=== PATIENT | male | born 1960 | race Caucasian/White ===

== ENCOUNTER 2021-09-29 16:42 | Outpatient (CLI) | payer MEDICAID, SELFPAY ==
[2021-09-29 11:27] LABS: Cholesterol* 172 mg/dL (90-199); Triglycerides* 53 mg/dL (40-149)
[2021-09-29 11:28] LABS: HDL Cholesterol* 60 mg/dL (>=40); LDL Cholesterol Calculated 101 mg/dL (<100)
[2021-09-29 11:53] LABS: PSA Screen* 2.89 ng/mL (0.10-4.00)
== END 2021-09-29 16:43 | disposition home or self-care (01) ==
PROVIDERS: PCP Family Medicine; Visit Provider Family Medicine
DX: Z00.00 Encounter for general adult medical examination without abnormal findings (principal); Z12.5 Encounter for screening for malignant neoplasm of prostate; Z13.6 Encounter for screening for cardiovascular disorders
CPT/HCPCS: 80061; 84153

== ENCOUNTER 2021-10-07 13:03 | Outpatient (CLI) | payer MEDICAID, SELFPAY ==
[2021-10-07 18:05] LABS: Albumin* 4.2 g/dL (3.3-5.0); Chloride* 103 mmol/L (96-114)
[2021-10-07 18:06] LABS: Sodium* 138 mmol/L (135-149)
[2021-10-07 18:08] LABS: Alkaline Phosphatase* 88 U/L (40-150); Aspartate Amino Transferase* 27 U/L (12-35); Bilirubin Total* 0.4 mg/dL (0.1-1.5); Blood Urea Nitrogen* 21 mg/dL (7-30); Carbon Dioxide* 28 mmol/L (20-32); Creatinine* 0.9 mg/dL (0.5-1.5); Estimated Glomerular Filt Rate 97 ml/min; Total Protein* 6.5 g/dL (6.0-8.3)
[2021-10-07 18:09] LABS: Alanine Aminotransferase* 26 U/L (4-50); Glucose* 97 mg/dL (60-115)
== END 2021-10-07 13:04 | disposition home or self-care (01) ==
LOC: NFLDREF 13:04
PROVIDERS: PCP Family Medicine; Visit Provider Family Medicine
DX: Z00.00 Encounter for general adult medical examination without abnormal findings (principal); R53.83 Other fatigue
CPT/HCPCS: 80053

== ENCOUNTER 2022-02-15 07:45 | Outpatient (CLI) | payer MEDICAID, SELFPAY ==
--- NOTE | 2022-02-15 08:00 | CRLHL7_ITS ---
For Patients: As a result of the Cures Act, medical imaging exams and procedure reports are released immediately into your electronic medical record. You may view this report before your referring provider. If you have questions, please contact your health care provider. INDICATION: Lung cancer screening. History of smoking. High risk patient with greater than 38 pack-year smoking history. TECHNIQUE: Low-dose lung cancer screening non-contrast CT chest. Dose reduction techniques were used. COMPARISON: None. FINDINGS: NODULES: 4 millimeter nodular density left upper lobe, 3/63, possible branching vessel. Benign calcified nodule posterior segment left upper lobe. Other smaller calcified granulomas are present bilaterally. Peripheral nodule left upper lobe measuring 5 millimeters, 3/105. Small curvilinear nodule adjacent to the left major fissure left upper lobe measuring 4.7 millimeters, 3/82. Peripheral nodule within the right middle lobe measuring 3.5 millimeters, 3/107. Curvilinear nodular density adjacent to the pleura within the right lower lobe measuring 4 millimeters, 3/128. Additional right lower lobe nodule adjacent to the fissure measuring 3.3 millimeters, 3/134. LUNGS AND PLEURA: Emphysematous changes with COPD. No infiltrate or edema. No effusion or pneumothorax. MEDIASTINUM: No adenopathy. CORONARY ARTERY CALCIFICATION: Mild-moderate. LIMITED UPPER ABDOMEN: Status post cholecystectomy. Vascular calcifications. MUSCULOSKELETAL: Normal. IMPRESSION: Multiple bilateral pulmonary nodules measuring up to 5 millimeters. LUNG-RADS CATEGORY: 2: Benign. RADIOLOGIST RECOMMENDATION: Continue annual screening with low-dose CT chest in 12 months. Please note that all CT scans at this facility use dose modulation, iterative reconstruction, and/or weight-based dosing when appropriate to reduce radiation dose to as low as reasonably achievable. Dictated by Mio Barajas MD @ 02/15/2022 11:25:32 AM (Electronically Signed)
== END 2022-02-15 07:46 | disposition home or self-care (01) ==
LOC: CT 07:46
PROVIDERS: PCP Family Medicine; Visit Provider Family Medicine
DX: F17.200 Nicotine dependence, unspecified, uncomplicated (principal); R91.1 Solitary pulmonary nodule; Z12.2 Encounter for screening for malignant neoplasm of respiratory organs
CPT/HCPCS: 71271

== ENCOUNTER 2022-09-22 13:33 | Outpatient (CLI) | payer MEDICAID, SELFPAY | END 2022-09-22 13:34 | disposition home or self-care (01) | PROVIDERS: PCP Family Medicine; Visit Provider Nurse Practitioner Family | DX: D64.9 Anemia, unspecified (principal); R00.2 Palpitations; R53.1 Weakness; R06.09 Other forms of dyspnea; Z13.6 Encounter for screening for cardiovascular disorders | CPT/HCPCS: 80053; 80061; 83735; 84443; 85025 ==

== ENCOUNTER 2022-09-30 10:37 | Outpatient (CLI) | payer MEDICAID, SELFPAY | END 2022-09-30 10:38 | disposition home or self-care (01) | PROVIDERS: PCP Nurse Practitioner Family; Visit Provider Nurse Practitioner Family | DX: R53.1 Weakness (principal); R06.09 Other forms of dyspnea; R00.2 Palpitations; Z13.6 Encounter for screening for cardiovascular disorders; Z12.5 Encounter for screening for malignant neoplasm of prostate | CPT/HCPCS: 83540; 83550; 84153; 93225; 93226 ==

== ENCOUNTER 2022-10-12 08:02 | Outpatient (CLI) | payer MEDICAID, SELFPAY ==
--- NOTE | 2022-10-12 08:15 | CRLHL7_ITS ---
For Patients: As a result of the Century Cures Act, medical imaging exams and procedure reports are released immediately into your electronic medical record. You may view this report before your referring provider. If you have questions, please contact your health care provider. INDICATION: Dysphagia TECHNIQUE: Modified barium swallow. Fluoroscopic time 71 seconds. COMPARISON: None FINDINGS/IMPRESSION: Anatomical structures are normal. Swallowing mechanism appears within normal limits. No episodes of penetration or aspiration. No significant findings. Dictated by Mio Barajas MD @ 10/12/2022 8:50:13 AM (Electronically Signed)
--- NOTE | 2022-10-12 13:54 | SLP.EVAL ---
Ashley Please review, sign and return. Thank you KAITLYN Dobbs LOAN COUNSELOR Vicky Perry Start: 10/12/22 08:37 Freq: Status: Active Protocol: Document 10/12/22 08:37 HJS (Rec: 10/12/22 08:47 HJS [id number]) E-signed By Karma Kim CCC, LOAN COUNSELOR LOAN COUNSELOR System Review History & Reason For Referral Type of Speech Evaluation Modified Barium Swallow Evaluation Rehabilitation Order Evaluation Date of Order 09/30/22 Reason for Referral food getting stuck Medical Diagnosis dysphagia Treatment Diagnosis Dysphagia Hearing Information Hearing Status Adequate for conversation. Vision Information Vision Status normal Patient Orientation Orientation & Mental Status Within normal LOAN COUNSELOR Initial Assessment/POC Subjective Information Subjective/Pain Comment Patient independently ambulated to the xray suite. He is pleasant and cooperative . Assessment & Impression Assessment/Impression Patient is a 62 year old male referred for a modified barium swallow study due to difficulty swallowing, specifically the feeling of food getting stuck. He reports it happens intermittently. He has the feeling now after taking his pills this morning. He denies any symptoms of aspiration. He denies any history of reflux. ORAL MOTOR FUNCTION AND DENTITION Patient able to move tongue and lips adequately. He is missing several teeth, some front and some back. He reports he doesn't have any difficulty chewing with the missing teeth. THIN LIQUID Patient took several sips of thin liquid by cup. He initiated a swallow immediately and had no penetration or aspiration. PUREE Patient given a teaspoon of puree. He was able to easily manipulate and swallow with no penetration, aspiration or pharyngeal residue. MUFFIN AND COOKIE WITH BARIUM PUREE Patient given separate trials of muffin and cookie each mixed with barium puree. He was able to chew and swallow with no penetration, aspiration or pharyngeal residue. PILL Patient given a barium pill with water. He was able to swallow immediately and the pill passed quickly into his stomach. IMPRESSIONS AND RECOMMENDATIONS Patient exhibits a safe functional oral pharyngeal swallow with no penetration, aspiration or residue with any consistency. The radiologist panned down to view esophageal emptying and did not note any significant abnormalities. Patient has an appointment at the end of the month with Dr. Lee ENT. Recommended to patient that he keep food moist by drinking water. Regular diet and thin liquids appropriate. Therapist Signature & License # I Certify That Therapy Services Provided Therapist Signature & License Number Karma Kim CCC-LOAN COUNSELOR, # [id number] Physician Signature Signature of Physician Indicates Medically Needed Services Physician Signature & Date Required Please Sign/Date Here Speech/Language Pathology Billing Units Billing Units Eval Swallow Motion Fluoro 1
== END 2022-10-12 08:03 | disposition home or self-care (01) ==
LOC: RAD 08:03
PROVIDERS: PCP Nurse Practitioner Family; Visit Provider Nurse Practitioner Family
DX: R13.10 Dysphagia, unspecified (principal)
CPT/HCPCS: 74230; 92611

== ENCOUNTER 2022-10-14 10:44 | Outpatient (CLI) | payer MEDICAID, SELFPAY | END 2022-10-14 10:45 | disposition home or self-care (01) | LOC: RAD 10:44 | PROVIDERS: PCP Nurse Practitioner Family; Visit Provider Nurse Practitioner Family | DX: R06.09 Other forms of dyspnea (principal) | CPT/HCPCS: 93306 ==

== ENCOUNTER 2022-10-24 13:41 | Outpatient (CLI) | payer MEDICAID, SELFPAY | END 2022-10-24 13:42 | disposition home or self-care (01) | LOC: US 13:42 | PROVIDERS: PCP Nurse Practitioner Family; Visit Provider Nurse Practitioner Family | DX: R53.1 Weakness (principal) | CPT/HCPCS: 93922 ==

== ENCOUNTER 2023-02-14 07:44 | Outpatient (CLI) | payer MEDICAID, SELFPAY ==
--- NOTE | 2023-02-14 08:00 | CRLHL7_ITS ---
For Patients: As a result of the Century Cures Act, medical imaging exams and procedure reports are released immediately into your electronic medical record. You may view this report before your referring provider. If you have questions, please contact your health care provider. INDICATION: Lung cancer screening. Significant smoking history. TECHNIQUE: Low-dose volumetric helical scanning of the thorax was performed without IV contrast material. Coronal and sagittal reconstructions were obtained. COMPARISON: Low-dose chest CT of 02/15/2022 FINDINGS: No new/suspicious pulmonary nodule is identified. Small pre-existing nodules are stable and benign. Emphysema is again noted. New small subpleural infiltrates are demonstrated in the anterior right middle lobe on images 121-129 and images 144-150 of series 3. New/increased mild bronchial wall thickening is demonstrated. No pleural effusion is evident. The heart size is normal. Calcified coronary arterial plaque is again noted. Images of the upper abdomen are unremarkable except for postop changes of cholecystectomy. IMPRESSION: 1. No new/suspicious pulmonary nodule identified. Pre-existing small nodules stable and benign. Lung-RADS CATEGORY 1: NEGATIVE: Continue annual screening with low-dose chest CT in 12 months is recommended. 2. Emphysema and two new small subpleural infiltrates in the anterior right middle lobe. 3. New/increased mild bronchial wall thickening. 4. Coronary artery disease. Please note that all CT scans at this facility use dose modulation, iterative reconstruction, and/or weight-based dosing when appropriate to reduce radiation dose to as low as reasonably achievable. Dictated by Sebastian Guerrero MD @ 02/15/2023 11:34:15 AM (Electronically Signed)
== END 2023-02-14 07:45 | disposition home or self-care (01) ==
LOC: CT 07:46
PROVIDERS: PCP Nurse Practitioner Family; Visit Provider Nurse Practitioner Family
DX: F17.210 Nicotine dependence, cigarettes, uncomplicated (principal); Z12.2 Encounter for screening for malignant neoplasm of respiratory organs; R91.1 Solitary pulmonary nodule; I25.10 Atherosclerotic heart disease of native coronary artery without angina pectoris
CPT/HCPCS: 71271

== ENCOUNTER 2023-04-04 07:45 | Outpatient (CLI) | payer MEDICAID, SELFPAY ==
[2023-04-04] MEDS: SODIUM CHLORIDE 0.9 % (FLUSH) 10 ML SYRINGE IVF (09:35)
[2023-04-04] MEDS: REGADENOSON 0.4 MG/5 ML SYRINGE IVP (09:35)
[2023-04-04 09:50] VITALS: BP 136/76; PULSE 118; RESP 20
--- NOTE | 2023-04-04 10:51 | W.PM.STED ---
Stress Test Note Date Date Seen: 04/04/23 Date of test: 04/04/23 Providers Referring provider: Casey Noriega Primary care provider: Ashley Morales Stress test physician: Aixa Thomas Stress Test Note Stress test ordered: Lexiscan Indication for test: Dyspnea, coronary calcification Stress test medicine: Lexiscan Results discussion: Resting EKG: Sinus rhythm, 76 beats per minute. Artifact V6. Resting blood pressure: 137/78 Stress test: Patient attempted a walking Lexiscan, within the 1st minute became too dyspneic, legs felt too weak and painful to continue, had patient convert to sitting and kicking his legs, had good recovery. He had no chest pain with this. These are similar to symptoms that he gets with walking, particularly going up stairs. He had no arrhythmia, lungs were auscultated and he was not actively wheezing during this portion of significant dyspnea. He recovered from these symptoms quickly with rest. Patient had a maximum heart rate of 123 beats per minute. No EKG evidence of active ischemia. Patient was back to baseline at the end of the test. He will get post stress nuclear images done. Impression: Subjective dyspnea and bilateral leg weakness/discomfort, objectively negative EKG. Follow up suggested: Await the nuclear images to couple this for a full formal diagnostic. Considerations for his leg symptoms could be claudication versus pseudoclaudication. Patient does report he has COPD as well. His dyspnea could be multifactorial. Certainly the nuclear images will help identify any coronary ischemia as causative etiology.
== END 2023-04-04 07:46 | disposition home or self-care (01) ==
LOC: STRESS 07:46
PROVIDERS: PCP Nurse Practitioner Family; Visit Provider Internal Medicine Cardiovascular Disease
DX: I25.10 Atherosclerotic heart disease of native coronary artery without angina pectoris (principal); I25.84 Coronary atherosclerosis due to calcified coronary lesion; R06.09 Other forms of dyspnea
CPT/HCPCS: 78452; 93016; 93017; A9500; J2785

== ENCOUNTER 2023-05-11 08:57 | Outpatient (CLI) | payer MEDICAID, SELFPAY | END 2023-05-11 08:58 | disposition home or self-care (01) | PROVIDERS: PCP Nurse Practitioner Family; Visit Provider Nurse Practitioner Family | DX: M62.81 Muscle weakness (generalized) (principal); D64.9 Anemia, unspecified; Z13.228 Encounter for screening for other metabolic disorders | CPT/HCPCS: 80053; 82306; 82550; 85025; 85651; 86140 ==

== ENCOUNTER 2023-08-03 23:50 | Emergency (ER) | payer MEDICAID, SELFPAY ==
[2023-08-03 23:53] VITALS: BP 136/76; PULSE 80; RESP 16; TEMP 36.7; O2SAT 98; BMI 18.4
--- NOTE | 2023-08-04 00:02 | ED.CHESTPAIN ---
HPI - Chest Pain General Time Seen by Provider: 00:02 Date Seen: 08/04/23 Chief Complaint: Chest Pain Stated Complaint: Chest Pain Time Seen by Provider: 08/04/23 00:02 Source: patient Mode of arrival: ambulatory Limitations: no limitations History of Present Illness HPI narrative: Edu is a very pleasant 63-year-old gentleman with history of muscle weakness unknown etiology, tobacco use, coronary artery disease, questionable long COVID who comes to the emergency room for evaluation regarding chest pain. Patient notes that at approximately 2300 hours he was in bed trying to go to sleep we had the sudden onset of right-sided chest pain. He states that it radiated to his back and felt like he was being crushed. He notes that he sat up but the pain continues to get worse and worse and this lasted up to 12 minutes before it started a beta in. EMS had arrived and they did give him oxygen and his felt that it was helping him. Currently in the emergency room he is pain-free. While this was occurring he notes it was hard to take a deep breath and he was very pale in color according to his . She did not feel like he was diaphoretic and he denied nausea or vomiting. Patient states a similar occurrence happened in December of 2022 when he was sitting in his deer stand. At that time he had both sides of his chest feel like they were being crushed. He followed up with [facility] Clemens provider in [place] at which time he agrees he underwent a stress test. He states he could barely do the walking on the treadmill part but that he passed everything. He had previously been on aspirin because of nose bleeds he had discontinued that. Patient denies any recent cough cold congestion. He does have a history of COPD. Denies any recent trauma. Has not been on any extended car rides plane trips and denies calf pain or history of DVT. Related Data Home Medications ?Medication ?Instructions ?Recorded ?Confirmed aspirin 81 mg tablet,delayed 81 mg PO QDAY 03/24/23 05/11/23 release (Adult Aspirin Regimen) Previous Rx's ?Medication ?Instructions ?Recorded fluticasone 250 mcg-salmeterol 50 1 inh inhalation BID 30 days #60 ea 09/22/22 mcg/dose blistr powdr for inhalation (Advair Diskus) tamsulosin 0.4 mg capsule 0.4 mg PO QPM #90 caps 10/12/22 tiotropium bromide 2.5 2 puff inhalation QDAY #4 grams 10/20/22 mcg/actuation mist for inhalation (Spiriva Respimat) bupropion HCl 150 mg tablet,12 hr 150 mg PO BID #180 tabs 11/04/22 sustained-release atorvastatin 20 mg tablet (Lipitor) 20 mg PO ONCE #90 tabs 02/21/23 albuterol sulfate 90 mcg/actuation 2 inh inhalation Q4H PRN shortness 06/07/23 aerosol inhaler (ProAir HFA) of breath or wheezing #6.7 grams Allergies Allergy/AdvReac Type Severity Reaction Status Date / Time varenicline Allergy Intermediate Mental Verified 05/11/23 08:27 problems acetaminophen Allergy Unknown Verified 05/11/23 08:27 codeine Allergy Unknown Verified 05/11/23 08:27 Review of Systems Status of ROS Reports: 10 or more systems reviewed and unremarkable except as noted in History and below Const Denies: fever or chills ENMT Denies: throat pain or neck pain Cardio Reports: chest pain and shortness of breath with exertion; Denies: palpitations, edema or swelling of feet/ankles Resp Reports: shortness of breath; Denies: cough or wheezing GI Denies: abdominal pain, nausea or vomiting Musculo Reports: back pain; Denies: neck pain, extremity pain or extremity swelling Neuro Denies: headache Allergy/Immuno Denies: wheezing PFSH PFSH Medical History Nicotine dependence ?F17.200 - Nicotine dependence, unspecified, uncomplicated (ICD-10) Weakness ?R53.1 - Weakness (ICD-10) Recovering alcoholic ?F10.21 - Alcohol dependence, in remission (ICD-10) Surgical History History of inguinal hernia repair (2005) ?Z98.890 - Other specified postprocedural states (ICD-10) ?Z87.19 - Personal history of other diseases of the digestive system (ICD-10) History of cholecystectomy (2015) ?Z90.49 - Acquired absence of other specified parts of digestive tract (ICD-10) Family History Sister Breast cancer, Onset Age: 40 Brother Thyroid cancer Throat cancer Mother Lung cancer Liver cancer Daughter Cancer Father Liver cancer Alcoholism Heart disease Myocardial infarction Family/Other Alcoholism Brother Liver cancer Social History Narrative: Exercise involving walking- daily , 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 Little interest or pleasure in doing things: not at all Feeling down, depressed, or hopeless: not at all service: No Exam Narrative Exam Narrative: Patient is alert and oriented. He and his significant other very loving toward each other. External ears eyes nose clear. Poor dentition. Heart with a regular rate and rhythm and lungs are clear bilaterally. Strong smell of tobacco in the room. Lower extremities without edema. Pedal pulses are intact and are symmetrical and strong. Palpation of the abdomen shows no pulsating mass and no tenderness. Const Vital Signs, click to edit/add: Vital Signs - 24 hr 08/03/23 23:53 08/04/23 00:59 Temperature 98.0 F 98.0 F Pulse Rate [Pulse Oximeter] 80 75 Respiratory Rate 16 16 Blood Pressure [Left Upper Arm] 136/76 108/70 Pulse Oximetry 98 97 Oxygen Delivery Method Room Air Room Air Documenting provider has reviewed patient's vital signs: yes Course Course ED Course: Differential diagnosis includes but is not limited to pneumothorax pleurisy angina PE pneumonia musculoskeletal spasm IV has already been placed and dressed labs drawn to include CBC, comprehensive, troponin, D-dimer, CRP. Will also obtain chest x-ray EKG and keep patient on clinical research monitor at this time. Reevaluation(s) Reevaluation #1: I was called to the patient's room as he was shouting out in pain. Appeared to have cramping in his left leg causing ankle inversion. He was quite uncomfortable. We did give him a Tums tablet and the cramp dissipated. Upon further discussion he notes that he will get cramps in his hands and his legs as bad as this at home. He is now comfortable. Have added magnesium 2 his labs. His calcium level is normal. Reevaluation #2: Patient continues to be without any chest pain. No return of leg cramps. Calcium and magnesium levels are within normal limits. Vital Signs Vital signs: Initial Vital Signs Temperature 98.0 F 08/03/23 23:53 Temperature Source Temporal Artery Scan 08/03/23 23:53 Pulse Rate 80 08/03/23 23:53 Pulse Rhythm Regular 08/03/23 23:53 Respiratory Rate 16 08/03/23 23:53 Blood Pressure 136/76 08/03/23 23:53 Blood Pressure Mean 96 08/03/23 23:53 Blood Pressure Position Supine 08/03/23 23:53 Pulse Oximetry 98 08/03/23 23:53 Oxygen Delivery Method Room Air 08/03/23 23:53 Vital Signs Temperature 98.0 F 08/03/23 23:53 Pulse Rate 80 08/03/23 23:53 Respiratory Rate 16 08/03/23 23:53 Blood Pressure 136/76 08/03/23 23:53 Pulse Oximetry 98 08/03/23 23:53 Oxygen Delivery Method Room Air 08/03/23 23:53 Temperature 98.0 F 08/04/23 00:59 Pulse Rate 75 08/04/23 00:59 Respiratory Rate 16 08/04/23 00:59 Blood Pressure 108/70 08/04/23 00:59 Pulse Oximetry 97 08/04/23 00:59 Oxygen Delivery Method Room Air 08/04/23 00:59 Medications Administered Medications: Discontinued Medications Generic Name Dose Route Start Last Admin Trade Name Rogelio PRN Reason Stop Dose Admin Calcium Carbonate 500 mg 08/04/23 01:26 08/04/23 01:20 Calcium Carbonate 500 Mg Chew PO 08/04/23 01:27 500 mg ONCE ONE Administration MDM - Chest Pain MDM Narrative Medical decision making narrative: 1. Atypical chest pain-2 sets of cardiac enzymes negative. EKGs reassuring. Patient had no return of chest pain. I did extend the 2nd troponin out 4 hours from the onset of his symptoms at 2300. So 2nd set drawn at 0300. Follow-up with Osvaldo Clemens for recheck. Return as needed for worsening symptoms. 2. Leg cramps-potassium calcium and electrolytes all reassuring. Calcium tablet of Tums did seem to help the leg cramp dissipate. 3. Disposition-home at this time. Return for worsening symptoms. Medical Records Data Attestation: I reviewed the patient's medical records. Lab Data Attestation: I reviewed the patient's lab results. Labs: Lab Results 08/04/23 08/04/23 08/04/23 Range/Units 00:10 00:17 01:17 WBC 6.21 (4.50-11.00) K/uL RBC 4.29 L (4.30-5.90) m/uL Hgb 13.1 L (13.5-17.5) gm/dL Hct 40.5 (37.0-53.0) % MCV 94 (80-100) fL MCH 31 (26-34) pg MCHC 32 (32-36) gm/dL RDW Coeff of [place] 12.0 (11.5-15.5) % Plt Count 258 (140-440) K/uL Neut % (Auto) 62.5 (42.0-72.0) % Lymph % (Auto) 23.0 (20-44) % [place] % (Auto) 10.1 (0.0-11.0) % Eos % (Auto) 4.0 (0.0-7.0) % Baso % (Auto) 0.2 (0.0-3.0) % Neut # (Auto) 3.88 (1.7-7.0) K/uL Lymph # (Auto) 1.43 (0.90-2.90) K/uL [place] # (Auto) 0.60 (0.00-0.90) K/UL Eos # (Auto) 0.25 (0.00-0.50) K/uL Baso # (Auto) 0.01 (0.00-0.30) K/uL Abs Immat Gran (auto) 0.01 (0.00-0.30) K/uL Imm/Tot Granulo (auto) 0.2 % D-Dimer Quant (PE/DVT) 0.12 (0.00-0.50) ug/ml Sodium 140 (135-149) mmol/L Potassium 3.9 (3.6-5.1) mmol/L Chloride 106 (96-114) mmol/L Carbon Dioxide 29 (20-32) mmol/L Anion Gap 5 L (7-15) mEq/L BUN 30 (7-30) mg/dL Creatinine 1.1 (0.5-1.5) mg/dL Estimated Creat Clear 53.36 Estimated GFR 75 ml/min Glucose 144 H (60-115) mg/dL Calcium 9.3 (8.4-10.6) mg/dL Magnesium 2.4 (1.5-2.6) mg/dL Total Bilirubin 0.4 (0.1-1.5) mg/dL AST 89 H (12-35) U/L ALT 46 (4-50) U/L Alkaline Phosphatase 87 (40-150) U/L Total Protein 6.4 (6.0-8.3) g/dL Albumin 4.2 (3.3-5.0) g/dL Lipase 55 (23-300) U/L Lab Acknowledgement Test Added POC Troponin I 0.00 L (0.01-0.04) ng/ml 08/04/23 Range/Units 03:00 WBC (4.50-11.00) K/uL RBC (4.30-5.90) m/uL Hgb (13.5-17.5) gm/dL Hct (37.0-53.0) % MCV (80-100) fL MCH (26-34) pg MCHC (32-36) gm/dL RDW Coeff of [place] (11.5-15.5) % Plt Count (140-440) K/uL Neut % (Auto) (42.0-72.0) % Lymph % (Auto) (20-44) % [place] % (Auto) (0.0-11.0) % Eos % (Auto) (0.0-7.0) % Baso % (Auto) (0.0-3.0) % Neut # (Auto) (1.7-7.0) K/uL Lymph # (Auto) (0.90-2.90) K/uL [place] # (Auto) (0.00-0.90) K/UL Eos # (Auto) (0.00-0.50) K/uL Baso # (Auto) (0.00-0.30) K/uL Abs Immat Gran (auto) (0.00-0.30) K/uL Imm/Tot Granulo (auto) % D-Dimer Quant (PE/DVT) (0.00-0.50) ug/ml Sodium (135-149) mmol/L Potassium (3.6-5.1) mmol/L Chloride (96-114) mmol/L Carbon Dioxide (20-32) mmol/L Anion Gap (7-15) mEq/L BUN (7-30) mg/dL Creatinine (0.5-1.5) mg/dL Estimated Creat Clear Estimated GFR ml/min Glucose (60-115) mg/dL Calcium (8.4-10.6) mg/dL Magnesium (1.5-2.6) mg/dL Total Bilirubin (0.1-1.5) mg/dL AST (12-35) U/L ALT (4-50) U/L Alkaline Phosphatase (40-150) U/L Total Protein (6.0-8.3) g/dL Albumin (3.3-5.0) g/dL Lipase (23-300) U/L Lab Acknowledgement POC Troponin I 0.00 L (0.01-0.04) ng/ml Imaging Data Chest x-ray: Attestation: I have reviewed the pertinent imaging results. My impression: No widened mediastinum noted. Radiologist's impression: None Findings/Impression: No acute cardiopulmonary process detected. ECG Data Attestation: I personally reviewed and interpreted this ECG as follows: ECG interpretation date: 08/04/23 Interpretation: EKG 1. Shows sinus rhythm at a rate of 84. Q-waves noted in V1 V2 suspicious for old septal infarct. Compared to previous from September of 2022 no significant change. QT and [place] intervals within normal limits. EKG 2. By my read shows sinus rhythm at a rate of 68. Suspect lead reversal as Q-waves now present in V1 V3 but not in V2 no other acute ST or T-wave changes. Discharge Plan Discharge Clinical Impression: Atypical chest pain, Cramp in lower leg Patient Disposition: Home w/ Parent or Adult Condition: Improved Additional Instructions: Recommend follow-up with Osval[facility] Clemens for recheck. Tonight we have no evidence of a heart attack. Of course, if you should have worsening symptoms onset of new symptoms please come back to the emergency room. Prescriptions: No Action fluticasone propion-salmeterol [Advair Diskus] 250-50 mcg/dose blister with device 1 inh inhalation BID 30 Days Qty: 60 11RF atorvastatin [Lipitor] 20 mg tablet 20 mg PO ONCE Qty: 90 3RF aspirin [Adult Aspirin Regimen] 81 mg tablet,delayed release (DR/EC) 81 mg PO QDAY tamsulosin 0.4 mg capsule 0.4 mg PO QPM Qty: 90 3RF Spiriva Respimat 2.5 mcg/actuation mist 2 puff inhalation QDAY Qty: 4 12RF bupropion HCl 150 mg tablet sustained-release 12 hr 150 mg PO BID Qty: 180 4RF albuterol sulfate [ProAir HFA] 90 mcg/actuation HFA aerosol inhaler 2 inh inhalation Q4H PRN (Reason: shortness of breath or wheezing) Qty: 6.7 1RF Follow Up/Referrals: Ashley Morales APRN, TRAVEL COUNSELOR [employer] [Primary Care Provider] - Stand Alone Forms: [employer] Info Instructions
--- NOTE | 2023-08-04 00:15 | CRLHL7_ITS ---
For Patients: As a result of the Cures Act, medical imaging exams and procedure reports are released immediately into your electronic medical record. You may view this report before your referring provider. If you have questions, please contact your health care provider. Indication: Right-sided chest Technique: Single-view chest Comparison: None Findings/Impression: No acute cardiopulmonary process detected. Dictated by Abrahan Willett MD @ 08/04/2023 1:40:18 AM (Electronically Signed)
[2023-08-04 00:48] LABS: Basophils Absolute Auto 0.01 K/uL (0.00-0.30); Basophils Percent Auto 0.2 % (0.0-3.0); Eosinophils Absolute Auto 0.25 K/uL (0.00-0.50); Hematocrit 40.5 % (37.0-53.0); Hemoglobin* 13.1 gm/dL (13.5-17.5); Immature Granulocytes Abs Auto 0.01 K/uL (0.00-0.30); Immature Granulocytes Pct Auto 0.2 %; Lymphocytes Absolute Auto 1.43 K/uL (0.90-2.90); Mean Corpuscular HGB Conc 32 gm/dL (32-36); Mean Corpuscular Hemoglobin 31 pg (26-34); Mean Corpuscular Volume 94 fL (80-100); Monocytes Percent Auto 10.1 % (0.0-11.0); Neutrophils Absolute Auto 3.88 K/uL (1.7-7.0); Neutrophils Percent Auto 62.5 % (42.0-72.0); Platelet Count* 258 K/uL (140-440); Red Blood Count 4.29 m/uL (4.30-5.90); White Blood Count* 6.21 K/uL (4.50-11.00)
[2023-08-04 00:51] LABS: Slide Review Reflex No
[2023-08-04 00:54] LABS: Albumin* 4.2 g/dL (3.3-5.0); Chloride* 106 mmol/L (96-114); Potassium* 3.9 mmol/L (3.6-5.1); Sodium* 140 mmol/L (135-149)
[2023-08-04 00:56] LABS: Bilirubin Total* 0.4 mg/dL (0.1-1.5); Creatinine* 1.1 mg/dL (0.5-1.5); Est. Creatinine Clearance* 53.36; Estimated Glomerular Filt Rate 75 ml/min
--- OUTSIDE RECORDS SUMMARY | 2023-08-04 00:56 | XMS_ITS | Clinical Summary ---
Author Organization [facility] Address [place], [place] [address] Care Team Providers Care Patient Centered Care Specialist Name Role Phone Ashley Morales NP Primary Care Provider Addie vailable Social History Tobacco Use Types Packs/Day Years Used Date Smoking Tobacco: Never Assessed Social Connections Answer Date Recorded Frequency of Communication with Friends and Fami ly Not on file 03/24/2023 Sex and Gender Information Value Date Recorded Sex Assigned at Not on file Gender Identity Not on file Sexual Orientation Not on file Plan of Treatment Health Maintenance Due Date Last Done Comments Tdap 1971 Depression screening for age 12+ 1972 HIV for age 15-65 1975 BMI (ht and wt on same day) for age 18+ 1978 Hepatitis C screening for ag e 18-79 1978 Tetanus booster 1980 Colonoscopy through age 75 2005 Lipids for age 45-75 2005 Zoster (shingles) series for age 50+ (1 of 2) 2010 COVID-19 vaccine series (2022- season) 2022 Influenza for age 50-64 10/08/2023 Pneumococcal series for age 6-64 Aged Out No longer eligible based on patient's age to complete this topic Care Teams Patient Centered Care Specialist Relationship Specialty Start Date End Date Ashley Morales, [employer]IVER [id number] [place] [address] PCP - General Emergency Medicine 02/06/22
[2023-08-04 00:57] LABS: Alanine Aminotransferase* 46 U/L (4-50); Alkaline Phosphatase* 87 U/L (40-150); Anion Gap 5 mEq/L (7-15); Aspartate Amino Transferase* 89 U/L (12-35); Blood Urea Nitrogen* 30 mg/dL (7-30); Calcium* 9.3 mg/dL (8.4-10.6); Carbon Dioxide* 29 mmol/L (20-32); Glucose* 144 mg/dL (60-115); Total Protein* 6.4 g/dL (6.0-8.3)
[2023-08-04 00:58] LABS: Lipase* 55 U/L (23-300)
[2023-08-04 00:59] VITALS: BP 108/70; PULSE 75; RESP 16; TEMP 36.7; O2SAT 97
[2023-08-04 01:02] LABS: D Dimer Quantitative* 0.12 ug/ml (0.00-0.50)
--- NOTE | 2023-08-04 01:10 | PC.NURSE ---
Pt c/o cramp in left foot. Tums given PO per physician verbal order.
[2023-08-04] MEDS: CALCIUM CARBONATE 500 MG CHEW PO (01:20)
[2023-08-04 01:27] LABS: Magnesium* 2.4 mg/dL (1.5-2.6)
== END 2023-08-04 03:45 | disposition home or self-care (01) ==
LOC: ED 08-04 00:54
PROVIDERS: Emergency Provider Family Medicine; PCP Nurse Practitioner Family
DX: R07.89 Other chest pain (principal); R25.2 Cramp and spasm
CPT/HCPCS: 36415; 71045; 80053; 83690; 83735; 84484; 85025; 85379; 93005; 99284; 99285; A9270

== ENCOUNTER 2023-10-03 10:55 | Outpatient (CLI) | payer MEDICAID, SELFPAY ==
--- OUTSIDE RECORDS SUMMARY | 2023-10-03 10:59 | XMS_ITS | Clinical Summary ---
Author Organization [facility] Address [place], [place] [address] Care Team Providers Care Deputy Sheriff [employer] Services Name Role Phone Ashley Morales NP Primary Care Provider Addie vailable Encounters Date Type Department Care Team Description 08/22/2023 1:00 PM CDT Orders Only [facility] - [address] [phone] 1 scan: (1-Ord) US DARRYL W EXERCISE BILAT ([id number]) 08/22/2023 Travel 08/14/2023 Orders Only [facility] [address] [place] [address] Caleb Ibanez PA <No scans attached> 08/11/2023 Orders Only [facility] Scanner 1 scan: (1-Ord) INCOMING RECORDS-EKG, [facility], 08/11/2023 from Last 3 Months Social History Tobacco Use Types Packs/Day Years Used Date Smoking Tobacco: Never Assessed Social Connections Answer Date Recorded Frequency of Communication with Friends and Fami ly Not on file 03/24/2023 Sex and Gender Information Value Date Recorded Sex Assigned at Not on file Gender Identity Not on file Sexual Orientation Not on file Plan of Treatment Upcoming Encounters Date Type Department Care Team (Late st Contact Info) Description 11/01/2023 9:00 AM CDT Office Visit [facility] at [address] [phone] Jessica Pena MD [address] [place], [place] [phone] Health Maintenance Due Date Last Done Comments [...] (1 of 2) 2010 COVID-19 vaccine series ( season) 2022 Influenza for age 50-64 10/08/2023 Pneumococcal series for age 6-64 Aged Out No longer eligible based on patient's age to complete this topic Procedures Procedure Name Priority Date/Time Associated Diagnosis Comments US DARRYL W EXERCISE BILAT Routine 08/22/2023 1:25 PM CDT Claudication (HC) SCAN CORRESP-EKG RESULTS 08/11/2023 12:00 AM CDT from Last 3 Months Results * US DARRYL W EXERCISE BILAT (08/22/2023 1:25 PM CDT) Anatomical Region Laterality Modality LEGS Ultrasound 08/22/2023 1:01 PM CDT Narrative 08/24/2023 1:25 PM CDT VASCULAR ULTRASOUND REPORT EDU BAUTISTA Accession#: ?? [id number] : ?1960 ??Study Date: ?? 08/22/2023 1:01:27 PM Age: ?63 years ?? Tech: ? BVB Gender: M ?Referring MD: CALEB IBANEZ Site: [facility] Study performed: ?Lower extremity resting DARRYL, DARRYL with exercise, ?(bilateral). Indication for study: Claudication, LE pain/numbness TECHNIQUE: Lower/upper extremity arteries were examined per exam protocol by duplex ultrasound, color-flow and spectral Doppler. Peak systolic velocities (PSV), Doppler waveform quality, velocity ratios and vessel size in cm, were documented at protocol specific sites. Physiologic data including segmental pressures, ankle/brachial index (DARRYL), digit PPG recordings, laser Doppler flowmetry, transcutaneous oximetry, and digit temperatures were documented at sites per exam protocol and test requirements. IMPRESSION: 1. Resting ankle-brachial index is normal on the right at 1.07 and is normal on the left at 1.00. 2. Borderline reduced post-exercise bilateral DARRYL with return to baseline after 3 minutes. COMPARISON: Compared to prior study 10/24/22, there is no significant change. FINDINGS: +-------+ + + RIGHT ?? Velocity cm/s Phasicity ?? +-------+ + + VENEER LAYER DST ? 44 ? multiphasic +-------+ + + DPA ? 48 ? multiphasic +-------+ + + +-------+ + + LEFT ?? Velocity cm/s Phasicity ?? +-------+ + + VENEER LAYER DST ? 39 ? multiphasic +-------+ + + DPA ? 52 ? multiphasic +-------+ + + Criteria: Stenosis ?V. Ratio Mild ?<50% ?<2.0 Moderate ?? 50-74% ?> or = 2.0 Severe ? 75-99% ?> or = 4.0 Occluded ?100% ?? no detectable flow Pressures +-----+ +--------+ +-----+ ? RIGHT (mmHg) ? LEFT (mmHg) ? +-----+ +--------+ +-----+ Index ?129 ? Brachial ?118 ? Index +-----+ +--------+ +-----+ 1.05 ?135 ?VENEER LAYER ?129 ? 1.00 +-----+ +--------+ +-----+ 1.07 ?138 ?DPA ?123 ? 0.95 +-----+ +--------+ +-----+ EXERCISE Total Excercise Time: 1 minutes 20 seconds. Stopped due to claudication in bilateral calves. Toe lifts. +-------+--------+ +------+ +------+ TIME ?? BRACHIAL RT PRESSURE RT DARRYL LT PRESSURE LT DARRYL +-------+--------+ +------+ +------+ Resting ??129 ?135 ? 1.05 ?129 ? 1.00 +-------+--------+ +------+ +------+ 1 min. ??133 ?122 ? 0.92 ?130 ? 0.98 +-------+--------+ +------+ +------+ 3 min. ??127 ?143 ? 1.13 ?136 ? 1.07 +-------+--------+ +------+ +------+ Jose A Rodriguez MD. Electronically signed on 08/24/2023 1:25:12 PM This study was performed and interpreted by a service accredited by the Intersocietal Accreditation Commission (IAC/Vascular), www.[email or web address]/vascular Report generated by [employer]. ??Final ?? Procedure Note Jose A Rodriguez MD - 08/24/2023 VASCULAR ULTRASOUND REPORT EDU BAUTISTA : 1960 Study Date: 08/22/2023 1:01:27 PM Age: 63 years Tech: LAMB Gender: M Referring MD: CALEB IBANEZ Site: [facility] Study performed: Lower extremity resting DARRYL, DARRYL with exercise, (bilateral). Indication for study: Claudication, LE pain/numbness TECHNIQUE: Lower/upper extremity arteries were examined per exam protocol by duplexultrasound, color-flow and spectral Doppler. Peak systolic velocities(PSV), Doppler waveform quality, velocity ratios and vessel size in cm,were documented at protocol specific sites. Physiologic data includingsegmental pressures, ankle/brachial index (DARRYL), digit PPG recordings,laser Doppler flowmetry, transcutaneous oximetry, and digit temperatureswere documented at sites per exam protocol and test requirements. IMPRESSION: 1. Resting ankle-brachial index is normal on the right at 1.07 and isnormal on the left at 1.00. 2. Borderline reduced post-exercise bilateral DARRYL with return to baselineafter 3 minutes. COMPARISON: Compared to prior study 10/24/22, there is no significant change. FINDINGS: +-------+ + + RIGHT Velocity cm/s Phasicity +-------+ + + VENEER LAYER DST 44 multiphasic +-------+ + + DPA 48 multiphasic +-------+ + + +-------+ + + LEFT Velocity cm/s Phasicity +-------+ + + VENEER LAYER DST 39 multiphasic +-------+ + + DPA 52 multiphasic +-------+ + + Criteria: Stenosis V. Ratio Mild <50% <2.0 Moderate 50-74% > or = 2.0 Severe 75-99% > or = 4.0 Occluded 100% no detectable flow Pressures +-----+ +--------+ +-----+ RIGHT (mmHg) LEFT (mmHg) +-----+ +--------+ +-----+ Index 129 Brachial 118 Index +-----+ +--------+ +-----+ 1.05 135 VENEER LAYER 129 1.00 +-----+ +--------+ +-----+ 1.07 138 DPA 123 0.95 +-----+ +--------+ +-----+ EXERCISE Total Excercise Time: 1 minutes 20 seconds. Stopped due to claudication inbilateral calves. Toe lifts. +-------+--------+ +------+ +------+ TIME BRACHIAL RT PRESSURE RT DARRYL LT PRESSURE LT DARRYL +-------+--------+ +------+ +------+ Resting 129 135 1.05 129 1.00 +-------+--------+ +------+ +------+ 1 min. 133 122 0.92 130 0.98 +-------+--------+ +------+ +------+ 3 min. 127 143 1.13 136 1.07 +-------+--------+ +------+ +------+ Jose A Rodriguez MD. Electronically signed on 08/24/2023 1:25:12 PM This study was performed and interpreted by a service accredited by theIntersocietal Accreditation Commission (IAC/Vascular),www.[email or web address]/vascular Report generated by [employer]. Final Caleb KEARNEY US * SCAN CORRESP-EKG RESULTS (08/11/2023 12:00 AM CDT) Scanner OTHER from Last 3 Months Care Teams Deputy Sheriff Court Services Relationship Specialty Start Date End Date Ashley Morales CHILD ADOLESCENT PSYCHIATRIST [address] [place] [address] PCP - General Emergency Medicine 02/06/22
== END 2023-10-03 10:56 | disposition home or self-care (01) ==
PROVIDERS: PCP Nurse Practitioner Family; Visit Provider Nurse Practitioner Family
DX: Z00.00 Encounter for general adult medical examination without abnormal findings (principal); E78.5 Hyperlipidemia, unspecified; Z13.0 Encounter for screening for diseases of the blood and blood-forming organs and certain disorders involving the immune mechanism; Z12.5 Encounter for screening for malignant neoplasm of prostate
CPT/HCPCS: 80053; 80061; 85025; G0103

== ENCOUNTER 2023-11-21 08:01 | Outpatient (CLI) | payer MEDICAID, SELFPAY ==
--- OUTSIDE RECORDS SUMMARY | 2023-11-21 08:04 | XMS_ITS | Clinical Summary ---
Author Organization [facility] Address [place], [place] [address] Care Team Providers Care Technical Buyer Name Role Phone Ashley Morales NP Primary Care Provider Addie vailable Medications Medication Sig Dispensed Refills Start Date End Date Status atorvastatin (LIPITOR) 20 mg tablet Take 20 mg by mouth at bedtime. 08/22/2023 Active buPROPion (WELLBUTRIN SR) 150 mg Sustained-Release tablet Take 150 mg by mouth once daily in the morning. 08/30/2023 Active gabapentin (NEURONTIN) 300 mg capsule Take 300 mg by mouth once daily. 10/03/2023 Active tamsulosin (FLOMAX) 0.4 mg capsule Take 0.4 mg by mouth once daily after a meal. 10/04/2023 Active Advair Diskus 250-50 mcg/dose diskus inhaler Inhale 1 Puff by mouth two times daily. 10/28/2023 Active Spiriva Respimat 2.5 mcg/actuation mist for inhalation Inhale 2 Puffs by mouth one time if needed. 09/20/2023 Active Encounters Date Type Department Care Team Description 11/01/2023 9:00 AM CDT Office Visit [facility] at [address] [phone] Jessica Pena MD Consult (Bilateral leg pain/cramping,burnin g ) 11/01/2023 Travel 08/22/2023 1:00 PM CDT Orders Only [address] [phone] 1 scan: (1-Ord) US DARRYL W EXERCISE BILAT ([id number]) 08/22/2023 Travel from Last 3 Months Social History Tobacco Use Types Packs/Day Years Used Date Smoking Tobacco: Every Day Cigarettes Smokeless Tobacco: Never Tobacco Cessation:Ready to Q uit: Not Asked; Counseling Given: Not Answered Comments:3 a day Alcohol Use Standard Drinks/Week Comments Not Currently 0 (1 standard drink = 0.6 oz pur e alcohol) Sex and Gender Information Value Date Recorded Sex Assigned at Not on file Gender Identity Not on file Sexual Orientation Not on file Obstetrics History Last Filed Vital Signs Vital Sign Reading Time Taken Comments Blood Pressure 122/78 11/01/2023 8:56 AM CDT Pulse 95 11/01/2023 8:56 AM CDT Temperature - - Respiratory Rate - - Oxygen Saturation 95% 11/01/2023 8:56 AM CDT Inhaled Oxygen Concentration - - Weight 56.4 kg (124 lb 6.4 oz) 11/01/2023 8:56 A M CDT Height - - Body Mass Index - - Plan of Treatment Upcoming Encounters Date Type Department Care Team (Late st Contact Info) Description 11/28/2023 11:30 AM CDT Office Visit [facility] [phone] [place] [phone] Jessica Pena MD [address] [place], [place] [phone] Health Maintenance Due Date Last Done Comments Pneumococcal series for age 6-64 (1 of 2 - PCV) 1966 Tdap 1971 Depression screening for age 12+ 1972 HIV for age 15-65 1975 BMI (ht and wt on same day) for age 18+ 1978 Hepatitis C screening for age 18-79 1978 Tetanus booster 1980 Colonoscopy through age 75 2005 Lipids for age 45-75 2005 Zoster (shingles) series for age 50+ (1 of 2) 04/01/19 11 COVID-19 vaccine series ( - season) Influenza for age 50-64 10/08/2023 Procedures Procedure Name Priority Date/Time Associated Diagnosis Comments US DARRYL W EXERCISE BILAT Routine 08/22/2023 1:25 PM CDT Claudication (HC) from Last 3 Months Results * US DARRYL W EXERCISE BILAT (08/22/2023 1:25 PM CDT) Anatomical Region Laterality Modality LEGS Ultrasound 08/22/2023 1:01 PM CDT Narrative 08/24/2023 1:25 PM CDT VASCULAR ULTRASOUND REPORT EDU LECHUGA Accession#: ?? [id number] : ?1960 ??Study Date: ?? 08/22/2023 1:01:27 PM Age: ?63 years ?? Tech: ? BVB Gender: M ?Referring MD: NINA IBANEZ Site: [facility] Study performed: ?Lower extremity resting DARRYL, DARRYL [...] Velocity cm/s Phasicity ?? +-------+ + + ASSISTANT PROFESSOR OF NURSING DST ? 44 ? multiphasic +-------+ + + DPA ? 48 ? multiphasic +-------+ + + +-------+ + + LEFT ?? Velocity cm/s Phasicity ?? +-------+ + + ASSISTANT PROFESSOR OF NURSING DST ? 39 ? multiphasic +-------+ + [...] ? Index +-----+ +--------+ +-----+ 1.05 ?135 ?ASSISTANT PROFESSOR OF NURSING ?129 ? 1.00 +-----+ +--------+ +-----+ 1.07 [...] Accreditation Commission (IAC/Vascular), www.[email or web address]/vascular Report generated by [employer] ??Final ?? Procedure Note Jose A Rodriguez MD - 08/24/2023 VASCULAR ULTRASOUND REPORT EDU LECHUGA : 1960 Study Date: 08/22/2023 1:01:27 PM Age: 63 years Tech: BVB Gender: M Referring MD: NINA IBANEZ Site: [facility] Study performed: Lower extremity resting DARRYL, DARRYL [...] RIGHT Velocity cm/s Phasicity +-------+ + + ASSISTANT PROFESSOR OF NURSING DST 44 multiphasic +-------+ + + DPA 48 multiphasic +-------+ + + +-------+ + + LEFT Velocity cm/s Phasicity +-------+ + + ASSISTANT PROFESSOR OF NURSING DST 39 multiphasic +-------+ + + DPA 52 multiphasic +-------+ + + Criteria: Stenosis V. Ratio Mild <50% <2.0 Moderate 50-74% > or = 2.0 Severe 75-99% > or = 4.0 Occluded 100% no detectable flow Pressures +-----+ +--------+ +-----+ RIGHT (mmHg) LEFT (mmHg) +-----+ +--------+ +-----+ Index 129 Brachial 118 Index +-----+ +--------+ +-----+ 1.05 135 ASSISTANT PROFESSOR OF NURSING 129 1.00 +-----+ +--------+ +-----+ 1.07 138 [...] theIntersocietal Accreditation Commission (IAC/Vascular),www.[email or web address]/vascular Report generated by [employer] Final Nina KEARNEY from Last 3 Months Care Teams Technical Buyer Relationship Specialty Start Date End Date Ashley Morales [employer] [address] [place] [address] PCP - General Emergency Medicine 02/06/22
--- NOTE | 2023-11-21 08:15 | CRLHL7_ITS ---
For Patients: As a result of the Century Cures Act, medical imaging exams and procedure reports are released immediately into your electronic medical record. You may view this report before your referring provider. If you have questions, please contact your health care provider. INDICATION: Claudication of both lower extremities. COMPARISON: None. TECHNIQUE: MR angio abdominal aorta, pelvic vessels and both lower extremity arteriograms including both feet; 30 cc of Dotarem contrast was injected. FINDINGS: Excellent quality study. Abdominal aorta and iliac arteries are widely patent bilaterally without any evidence of focal significant narrowing. Common femoral arteries, deep femoral arteries, superficial femoral arteries and popliteal arteries are normal bilaterally. Three-vessel runoff in both lower extremities. Anterior tibial, posterior tibial and dorsalis pedis arteries are normal bilaterally including in both feet. No pathology involving the digital arteries to the feet on either side. IMPRESSION: Normal MR angiogram abdominal aorta and both lower extremity arteriograms including both feet. Dictated by Mariano Morin MD @ 11/23/2023 11:34:59 AM (Electronically Signed)
== END 2023-11-21 08:02 | disposition home or self-care (01) ==
LOC: MRI 08:01
PROVIDERS: PCP Nurse Practitioner Family; Visit Provider Surgery Vascular Surgery
DX: I73.9 Peripheral vascular disease, unspecified (principal)
CPT/HCPCS: 72198; 73725; A9575

== ENCOUNTER 2024-02-19 07:43 | Outpatient (CLI) | payer MEDICAID, SELFPAY ==
--- NOTE | 2024-02-19 08:00 | CRLHL7_ITS ---
For Patients: As a result of the Cures Act, medical imaging exams and procedure reports are released immediately into your electronic medical record. You may view this report before your referring provider. If you have questions, please contact your health care provider. INDICATION: Lung cancer screening. Current smoker. TECHNIQUE: Low-dose lung cancer screening non-contrast CT chest. Dose reduction techniques were used. COMPARISON: 02/14/2023 FINDINGS: NODULES: New irregular 8.2 millimeter nodule left lung apex, series 3, image 16. Other smaller nodules are similar bilaterally. LUNGS AND PLEURA: Emphysema. MEDIASTINUM: No adenopathy. CORONARY ARTERY CALCIFICATION: Present. LIMITED UPPER ABDOMEN: Gallbladder absent. Atherosclerotic changes. MUSCULOSKELETAL: No fracture. IMPRESSION: New suspicious irregular 8.2 millimeter left upper lobe nodule. LUNG-RADS CATEGORY: 4B: Suspicious. RADIOLOGIST RECOMMENDATION: CT-PET. Please note that all CT scans at this facility use dose modulation, iterative reconstruction, and/or weight-based dosing when appropriate to reduce radiation dose to as low as reasonably achievable. Dictated by Mio Barajas MD @ 02/19/2024 8:40:01 AM (Electronically Signed)
== END 2024-02-19 07:44 | disposition home or self-care (01) ==
LOC: CT 07:44
PROVIDERS: PCP Nurse Practitioner Family; Visit Provider Family Medicine
DX: Z12.2 Encounter for screening for malignant neoplasm of respiratory organs (principal); R91.1 Solitary pulmonary nodule; F17.210 Nicotine dependence, cigarettes, uncomplicated
CPT/HCPCS: 71271

== ENCOUNTER 2024-06-28 09:43 | Outpatient (CLI) | payer MEDICAID, SELFPAY ==
--- NOTE | 2024-06-28 10:00 | CRLHL7_ITS ---
For Patients: As a result of the Century Cures Act, medical imaging exams and procedure reports are released immediately into your electronic medical record. You may view this report before your referring provider. If you have questions, please contact your health care provider. INDICATION: MALIGNANT NEOPLASM OF LUNG ADENOCARCINOMA LT greater than 20 pack-year smoking TECHNIQUE: Low-dose lung cancer screening non-contrast CT chest. Dose reduction techniques were used. COMPARISON: 02/19/2024 FINDINGS: NODULES: Increased size of the spiculated left upper lobe pulmonary nodule now measuring up to 1 cm, previously measuring 8.2 millimeters. Additional nodular density in the left upper lobe has also developed which measures 5.1 millimeters. Similar nodule within the lingula measures 4.5 millimeters. Unchanged nodular density within the posterior lingula measuring 6.4 millimeters. Unchanged small nodular density within the right lower lobe adjacent to the fissure. Stable subpleural nodule within the lingula. LUNGS AND PLEURA: Emphysema/COPD. MEDIASTINUM: No adenopathy. CORONARY ARTERY CALCIFICATION: Present. LIMITED UPPER ABDOMEN: Atherosclerotic changes. MUSCULOSKELETAL: Unremarkable. IMPRESSION: Increased size of spiculated left apical pulmonary nodule now measuring 1 cm. Additional new left upper lobe pulmonary nodule measuring 5.1 millimeters. Additional nodules are stable. LUNG-RADS CATEGORY: 4X RADIOLOGIST RECOMMENDATION: PET/CT and/or tissue sampling depending on the probability of malignancy and comorbidities. PET/CT may be used when there is a greater than or equal to 8 mm solid component. Please note that all CT scans at this facility use dose modulation, iterative reconstruction, and/or weight-based dosing when appropriate to reduce radiation dose to as low as reasonably achievable. Dictated by Mio Barajas MD @ 06/28/2024 10:24:34 AM (Electronically Signed)
== END 2024-06-28 09:44 | disposition home or self-care (01) ==
LOC: CT 09:43
PROVIDERS: PCP Nurse Practitioner Family; Visit Provider Internal Medicine
DX: C34.92 Malignant neoplasm of unspecified part of left bronchus or lung (principal); R91.8 Other nonspecific abnormal finding of lung field; F17.200 Nicotine dependence, unspecified, uncomplicated
CPT/HCPCS: 71250

== ENCOUNTER 2024-07-09 16:13 | Outpatient (CLI) | payer MEDICAID, SELFPAY | END 2024-07-09 16:14 | disposition home or self-care (01) | PROVIDERS: PCP Nurse Practitioner Family; Visit Provider Nurse Practitioner Family | DX: R58 Hemorrhage, not elsewhere classified (principal) | CPT/HCPCS: 85025; 85045; 85610; 85730 ==

== ENCOUNTER 2024-08-21 15:44 | Outpatient (CLI) | payer MEDICAID, SELFPAY ==
--- NOTE | 2024-08-21 16:00 | CRLHL7_ITS ---
For Patients: As a result of the Century Cures Act, medical imaging exams and procedure reports are released immediately into your electronic medical record. You may view this report before your referring provider. If you have questions, please contact your health care provider. Indication: Malignant neoplasm of the adenocarcinoma hx of lung cancer Technique: Noncontrast CT chest Please note that all CT scans at this facility use dose modulation, iterative reconstruction, and/or weight-based dosing when appropriate to reduce radiation dose to as low as reasonably achievable. Comparison: 06/28/2024 Findings: Similar 1 cm spiculated nodule in the left lung apex. Also similar 5 millimeter nodule left upper lobe. Other smaller nodules in the left upper lobe are similar. There is a new large spiculated nodule within the right lung apex which measures 2.5 cm with reticular densities extending through the right posterior apical pleura. Some tenting of the adjacent major fissure noted. Underlying emphysema. Similar mediastinal and upper abdominal sub cm lymph nodes. No pleural or pericardial effusion. Gallbladder is absent. Atherosclerotic changes. No fracture. Impression: New suspicious 2.5 cm spiculated nodule within the right upper lobe. Appropriate action recommended. Similar spiculated nodule left lung apex with adjacent left upper lobe nodules. Please note that all CT scans at this facility use dose modulation, iterative reconstruction, and/or weight-based dosing when appropriate to reduce radiation dose to as low as reasonably achievable. Dictated by Mio Barajas MD @ 08/22/2024 9:49:25 AM (Electronically Signed)
== END 2024-08-21 15:45 | disposition home or self-care (01) ==
LOC: CT 15:44
PROVIDERS: PCP Nurse Practitioner Family; Visit Provider Nurse Practitioner
DX: C34.92 Malignant neoplasm of unspecified part of left bronchus or lung (principal)
CPT/HCPCS: 71250

== ENCOUNTER 2024-09-17 09:39 | Emergency (ER) | payer MEDICAID, SELFPAY ==
--- OUTSIDE RECORDS SUMMARY | 2024-08-27 15:19 | XMS_ITS | Encounter Summary ---
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 [address] [place] [address] Phone: tel: fax: 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 [address] [place] [address] Phone: tel: fax: Philip Encarnacion M.D. [address] [place] [address] Phone: tel: fax: Referral ID Status Reason Start Date Expiration Date Visits Re quested Visits Authorized [id number] Closed 08/27/2024 02/26/2026 1 1 Scheduling Instructions With sim * MRI/CAT/PET Scan (Routine) - Closed Specialty Diagnoses / Procedures Referred By Leo henley Referred To Contact Diagnoses Malignant Neoplasm Of Lung Adenocarcinoma Left (HCC) Procedures PET CT Skull to Thigh FDG PET CT Skull to Thigh FDG Philip Encarnacion M.D. [address] [place] [address] Phone: tel: fax: [facility] Referral ID Status Reason Start Date Expiration Date Visits Re quested Visits Authorized [id number] Closed 08/27/2024 11/27/2025 1 1 * Outpatient (Routine) - Closed Specialty Diagnoses / Procedures Referred By Contac t Referred To Contact Radiation Oncology Gypsy Zimmer APRN, C.N.P., D.N.P. [address] [place] [phone] Phone: tel: fax: Philip Encarnacion M.D. [address] [place] [phone] Phone: tel: fax: Referral ID Status Reason Start Date Expiration Date Visits Re quested Visits Authorized [id number] Closed 07/02/2024 01/01/2026 1 1 Reason for Visit * Outpatient (Routine) - Closed Specialty Diagnoses / Procedures Referred By Contac t Referred To Contact Radiation Oncology Gypsy Zimmer APRN, C.N.P., D.N.P. [address] [place] [phone] Phone: tel: fax: Philip Encarnacion M.D. [address] [place] [phone] Phone: tel: fax: Referral ID Status Reason Start Date Expiration Date Visits Re quested Visits Authorized [id number] Closed 07/02/2024 01/01/2026 1 1 Encounter Details Date Type Department Care Team (Latest Contact Info) Description 08/27/2024 3:19 PM CDT - 08/27/2024 4:59 PM CDT Hospital Encounter Department of Radiation Oncology in [address] [phone] Philip Encarnacion M.D. 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 Sex and Gender Information Value Date Recorded Sex Assigned at Not on file Legal Sex Male 8:33 PM RN CIRCULATING Gender Identity Not on file Sexual Orientation Not on file documented as of this encounter Last Filed Vital Signs Vital Sign Reading Time Taken Comments Blood Pressure 116/73 08/27/2024 3:23 PM CDT Pulse 75 08/27/2024 3:23 PM CDT Temperature 36.8 C (98.2 F) 08/27/2024 3:23 PM CDT Respiratory Rate - - Oxygen Saturation - - Inhaled Oxygen Concentration - - Weight 56.1 kg (123 lb 10.9 oz) 08/27/2024 3:23 PM CDT Height - - Body Mass Index 19.64 03/12/2024 1:06 PM RN CIRCULATING documented in this encounter Medications at Time of Discharge acetaminophen (TylenoL) 325 mg suppository Insert 325 mg into the rectum as needed for pain. albuterol 90 mcg/actuation inhaler Inhale 2 puffs as needed for wheezing. atorvastatin (Lipitor) 20 mg tablet Take 20 mg by mouth at bedtime. 08/22/2023 buPROPion (Wellbutrin SR) 150 mg 12 hr tablet Take 150 mg by mouth 2 (two) times a day. 08/30/2023 fluticasone propion-salmeteroL (Advair Diskus) 250-50 mcg/dose diskus inhaler Inhale 1 puff 2 (two) times a day. 10/28/2023 gabapentin (Neurontin) 300 mg capsule Take 300 mg by mouth daily. 10/03/2023 ibuprofen 600 mg tablet 600 mg as needed for pain. ipratropium-albute roL (DuoNeb) 0.5-2.5 mg/3 mL nebulizer solution 03/25/2024 magnesium citrate solution 250 mL daily. tamsulosin (Flomax) 0.4 mg 24 hr capsule Take 0.4 mg by mouth daily. 10/04/2023 tiotropium (Spiriva Respimat) 2.5 mcg/actuation inhaler Inhale 2 puffs daily as needed. 09/20/2023 documented as of this encounter Progress Notes * Gypsy Zimmer APRN, C.N.P., D.N.P. - 08/27/2024 3:30 PM CDT SUBJECTIVE DIAGNOSIS 1. Malignant Neoplasm Of Lung Adenocarcinoma Left (HCC) 2. 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 ([phone]) HISTORY OF PRESENT ILLNESS Edu Bautista is a 64 y.o. male with oek-retwo-ngln lung cancer of the left apex. He completed SBRT on April 05, 2024. He returns for short course follow up. His oncologic history is as follows: Oncology History Malignant Neoplasm Of Lung Adenocarcinoma Left (HCC) 02/19/[address] lung cancer screening demonstrated a new, irregular 8.2 mm nodule in the left lung apex. Other smaller nodules are similar bilaterally. LUNG-RADS CATEGORY: 4B: Suspicious 03/12/2024 Critical Imaging PET-CT Skull to Thigh FDG FINDINGS: Mild FDG uptake of the pulmonary nodule in the left apex. Additional smaller pulmonary nodules withlow level FDG uptake better seen on Q clear image. For example, a nodule in the left upper lobe, a nodule in the right upper lobe, and a nodule in the left upper lobe anteriorly. The other tiny pulmonary nodules are FDG nonavid. No FDG avid lymphadenopathy. No abnormal FDG uptake to suggest distant metastatic disease. 03/12/2024 Other Pulmonary Function Testing FVC: Pre 3.21 (87% predicted), post 3.93 (107% predicted). FEV1: Pre 0.98 (34% predicted), post 1.25 (43% predicted). DLCO Pre 12.4 (51% predicted). IMPRESSION: Abnormal. Moderate obstruction with hyperinflation. There is a significant response to bronchodilator by FVC criteria. DLCO (unadjusted for hemoglobin) is moderately reduced, consistent with a pulmonary parenchymal or vascular process or anemia. Normal resting and exercise oximetry. 03/12/2024 Other Pulmonary Medicine consult with Dr. Anna Tomas. Mr. Bautista' imaging was reviewed at multidisciplinary tumor board. The left apical nodule likely represents malignancy. Given his pulmonary function, he is not a surgical candidate. The consensus recommendation was to proceed with empiric radiation. Mr. Bautista would like to pursue Radiation Oncology consultation at [facility]. Notably, the other pulmonary nodules will require ongoing surveillance. 2024 - 04/05/2024 Radiation Therapy Radiation Therapy Treatment Details (2024 - 04/05/2024) Site: Left upper Lung Technique: SBRT Goal: Curative Dose: 5400 cGy Fraction: 3 06/28/[address] chest FINDINGS: NODULES: Increased size of the spiculated left upper lobe pulmonary nodule now measuring up to 1 cm, previously measuring 8.2 millimeters. Additional nodular density in the left upper lobe has also developed which measures 5.1 millimeters. Similar nodule within the lingula measures 4.5 millimeters. Unchanged nodular density within the posterior lingula measuring 6.4 millimeters. Unchanged small nodular density within the right lower lobe adjacent to the fissure. Stable subpleural nodule within the lingula. LUNGS AND PLEURA: Emphysema/COPD. MEDIASTINUM: No adenopathy. RADIOLOGIST RECOMMENDATION: PET/CT and/or tissue sampling depending on the probability of malignancy and comorbidities. PET/CT may be used when there is a greater than or equal to 8 mm solid component. 08/21/[address] Chest Impression: New suspicious 2.5 cm spiculated nodule within the right upper lobe. Appropriate action recommended. Similar 1 cm spiculated nodule left lung apex with adjacent left upper lobe nodules. 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 Leenstra. The patient reports doing well overall. He reports stable breathing overall. He does experience shortness of breath after lwvt-xr-eafgersj exertion. Shortness of breath resolves quickly with rest. Hedenies any chest pain, pressure, or tightness. He continues having a productive cough. He denies hemoptysis. Chest heaviness and sore throat he was experiencing about 1 month ago have completely resolved with the use of a Z-Barron. His ECOG performance status is 0. REVIEW OF SYSTEMS Review of systems was negative except as documented above. PATIENT REPORTED SYMPTOM SCREEN FATIGUE (Scale: 0 = no fatigue; 10 = worst fatigue you can imagine): 0 PAIN (Scale: 0 = no pain; 10 = worst pain you can imagine): 0 OVERALL QUALITY OF LIFE (Scale: 0 = as bad as can be; 10 = as good as can be): 8 OBJECTIVE BP 116/73 (BP Location: Right arm, Patient Position: Sitting, Cuff Size: Regular) Pulse 75 Temp36.8 ??C (Temporal) Wt 56.1 kg BMI 19.64 kg/m?? PHYSICAL EXAM General: Patient is alert and oriented in no apparent distress. Lungs: Clear to auscultation bilaterally. Heart: Regular rate and rhythm. Normal S1 and S2. ASSESSMENT / PLAN #1 Stage IA1 (cT1a, cN0, cM0) FDG-avid left apical nodule #2 Additional small pulmonary nodules bilaterally with low-level FDG uptake #3 Chronic obstructive pulmonary disease (FEV1 34%, DLCO 51%; PFTs 03/2024) #4 Tobacco use disorder, [id number]-[id number] #5 Stereotatic body radiation to a left apical lung tumor initiated 2024; completed April 05, 2024 #6 [address] scan August 21, 2024 demonstrated new 2.5 cm nodule in the right upper lung Current status: Recurrence of disease (regional) noted on imaging dated 08/21/24 after prior definitive initial treatment. It was a pleasure to meet with Bill today. He is doing well overall with limited though stable breathing. CT imaging 3 months following treatment demonstrated a new 5 mm nodule in the left upper lobejust outside of the treatment field. We followed up with a short interval repeat CT chest which demonstrated stable findings of the left upper lung but it unfortunately demonstrated a new 2.5 cm nodule in the right upper lung. We would like this further evaluated with a PET- CT scan to look for mediastinal involvement. He will do this in [place] on . We will see him back in follow up on Monday to review the results. We briefly discussed if this is the only site of disease pursuing SBRT to the right upper lung. I did mention if this is further advanced than the CT is showing we may talk about chemo and radiation. We will discuss in further detail after the PET-CT scan. Patient seen in collaboration with Dr. Encarnacion, please review his attestation for additional information. The patient was asked to contact us with questions or concerns. He verbally expressed his understanding of the plan. EDUCATION Ready to learn, no apparent learning barriers were identified; learning preferences include listening. Explained diagnosis and treatment plan; patient expressed understanding of the content. I personally spent 20 minutes in care of the patient today. Time includes both non face to face andface to face patient care. Signed by: Gypsy Zimmer APRN, C.N.P., Kenneth.N.P. 08/27/2024 3:55 PM CDT [facility] [address] [place] [address] Cosigned by Philip Encarnacion M.D. at 08/27/2024 4:59 PM CDT Associated attestation - Philip Encarnacion M.D. - 08/27/2024 4:59 PM CDT I saw and evaluated the patient and participated in the salcedo portions of the service. I reviewed thedocumentation of Gypsy Zimmer C.N.P. and agree with the findings and plan. Edu Bautista is a 64 y.o. male with stage IA1 (cT1a, cN0, cM0) FDG- avid left apical ghl-vxuxm-obww lung cancer. He completed SBRT on April 05, 2024. He returns in 5 month follow up. The patient reports his breathing is improved and stable. He has persistent dyspnea on exertion. Hedoes utilize nebulized breathing treatments with good effect and remains on albuterol and Advair. The patient appears well on exam. He is here with his Emiliana. A CT scan of his chest from August 21, 2024 shows a stable treated area in the left upper lobe along with a smaller adjacent nodule that is stable. Unfortunately, there is a new suspicious 2.5 cm spiculated nodule in the right upper lobe. Lymph nodes appeared normal we will this is a noncontrast scan. We discussed the patient's new suspicious right upper lobe nodule. We will obtain a PET/CT scan at [facility] on see the patient back on Monday to go over the results and to formulate next steps. The patient and his verbalized satisfaction with this plan. I have spent 13 minutes caring for this patient including ahgh-fo-bkoa and urm-joka-vo-face time. Signed by: Philip Encarnacion M.D. 08/27/24 4:59 PM CDT [facility] [place] documented in this encounter Miscellaneous Notes * Addendum Note - Nicole Dorsey - 08/27/2024 3:30 PM CDTEncounter addended by: Nicole Dorsey on: 08/28/2024 6:54 AM Actions taken: Letter saved documented in this encounter Plan of Treatment Upcoming Encounters Date Type Department Care Team (Late st Contact Info) Description 10/17/2024 11:00 AM CDT Appointment Department of Radiation Oncology in [place], [place] [address] [place] [address] Philip Encarnacion M.D. 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) 10 Occurrences starting 08/27/2024 until 11/27/2025 Scheduled Referrals Name Type Priority Associated Diagnoses Order Schedule Radiation Oncology office visit (clinic) Outpatient Referral Routine Once for 1 Occurrences starting 08/27/2024 until 08/27/2024 Radiation Oncology office visit (clinic) Outpatient Referral Routine Malignant Neoplasm Of Lung Upper Lobe Or Bronchus Right (HCC) Expected: 08/30/2024, Expires: 11/27/2025 documented as of this encounter Results * Initial Rad Onc Treatment Planning CT Simulation (08/30/2024 12:30 PM CDT) Narrative TWAN SALAZAR - 08/30/2024 12:30 PM CDT Philip Encarnacion M.D. 08/30/2024 1:58 PM Initial Rad Onc Treatment Planning CT Simulation Performed by: Philip Encarnacion M.D. Authorized by: Philip Encarnacion M.D. Simulation was performed under physician supervision based on physician order in preparation for radiation therapy. Physician was immediately available to provide assistance and direction throughout the procedure. Written consent for treatment was completed or confirmed. The patient was appropriately identified and placed in the treatment position using the necessary immobilization to ensure a reproducible treatment position. Reference estrada were placed to facilitate marking of isocenter. Area scanned:Chest Contrast used for the simulation procedure: None Patient position:head first supine and arms up Custom immobilization: Vac-elbert Motion management: 4D CT scan Bolus: No CT guidance: Following positioning of the patient, a series of slices was obtained to be utilized in treatment planning. CT images were transferred to the Eclipse treatment planning system, after a reference isocenter was determined and marked. Segmentation and treatment planning will take place prior to treatment delivery. Patient set up and imaging was appropriate and completed without incident. Bulk Mail Clerk use:No us Philip Encarnacion M.D. RADIATION ONCOLOGY ORDERAB LES Final Result TWAN SALAZAR na * PET CT Skull to Thigh FDG (08/29/2024 1:43 PM CDT) Anatomical Region Laterality Modality Body, Nuclear Medicine PET R ST LOS, PET ARZ LOS, Nuclear Medicine PET FLA LOS, Nuclear Medicine N/A Positron Emission Tomography (PET) Impressions 08/29/2024 2:23 PM CDT Moderately FDG avid 2.5 cm spiculated right upper lobe pulmonary nodule, concerning for malignancy. No FDG avid anthony or distant metastatic disease. Narrative 08/29/2024 2:23 PM CDT EXAM: PET CT SKULL TO THIGH FDG COMPARISON: PET 03/12/2024; CT 08/21/2024 INDICATION: Stage I NSCLC BOB s/p SBRT completed 04/05/24, new RUL 2.[address] chest on 08/21/24, rule out anthony and other metastases. F-[address] scan was performed from the mid calvarium through the upper thighs with CT fusion imaging for attenuation correction, anatomic coregistration, and respiratory gating only. Serum glucose at time of F-18 FDG injection: 110 mg/dL. Uptake time: 70 minutes following injection. The patient reports no recent vaccinations. Background: Liver SUV max = 1.8, Aorta Blood SUV max = 1.6 FINDINGS: Head/Neck: No suspicious hypermetabolic foci. Chest: Increased focal uptake associated with 2.5 cm spiculated right upper lobe nodule with SUV max 5.5 (3/81). No significant uptake associated with 1 cm left apical spiculated pulmonary nodule and additional smaller scattered nodules. Abdomen/Pelvis: No suspicious hypermetabolic foci. Skeleton: No suspicious hypermetabolic foci. Other Findings: Pulmonary emphysema. Arterial calcifications including coronary arteries. Cholecystectomy. Prostatic parenchymal calcifications. Pelvic phleboliths. Multilevel spondylosis. RADIOPHARMACEUTICAL/MEDS: Route: intravenous fludeoxyglucose F 18 injection HALF-WAY (F-18 FDG),13.1 millicurie Procedure Note Donnie Ryan M.D. - 08/29/2024 EXAM: PET CT SKULL TO THIGH FDG COMPARISON: PET 03/12/2024; CT 08/21/2024 INDICATION: Stage I NSCLC BOB s/p SBRT completed 04/05/24, new RUL 2.[address] chest on 08/21/24, rule out anthony and other metastases. F-[address] scan was performed from the mid calvarium through theupper thighs with CT fusion imaging for attenuation correction, anatomiccoregistration, and respiratory gating only. Serum glucose at time of F-18 FDG injection: 110 mg/dL. Uptake time: 70 minutes following injection. The patient reports no recent vaccinations. Background: Liver SUV max = 1.8, Aorta Blood SUV max = 1.6 FINDINGS: Head/Neck: No suspicious hypermetabolic foci. Chest: Increased focal uptake associated with 2.5 cm spiculated rightupper lobe nodule with SUV max 5.5 (3/81). No significant uptakeassociated with 1 cm left apical spiculated pulmonary nodule andadditional smaller scattered nodules. Abdomen/Pelvis: No suspicious hypermetabolic foci. Skeleton: No suspicious hypermetabolic foci. Other Findings: Pulmonary emphysema. Arterial calcifications includingcoronary arteries. Cholecystectomy. Prostatic parenchymal calcifications.Pelvic phleboliths. Multilevel spondylosis. RADIOPHARMACEUTICAL/MEDS: Route: intravenous fludeoxyglucose F 18 injection HALF-WAY (F-18 FDG),13.1 millicurie IMPRESSION: Moderately FDG avid 2.5 cm spiculated right upper lobe pulmonary nodule,concerning for malignancy. No FDG avid anthony or distant metastatic disease. 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
--- OUTSIDE RECORDS SUMMARY | 2024-08-29 11:54 | XMS_ITS | Encounter Summary ---
Author Organization [facility] Address [address] [place] [address] Care Team Providers Care Compugraph Operator Name Role Phone Unavailable Primary Care Provider Unavailabl e Reason for Referral * MRI/CAT/PET Scan (Routine) - Closed Specialty Diagnoses / Procedures Referred By Leo henley Referred To Contact Diagnoses Malignant Neoplasm Of Lung Adenocarcinoma Left (HCC) Procedures PET CT Skull to Thigh FDG PET CT Skull to Thigh FDG Philip Encarnacion M.D. [address] [place] [address] Phone: tel: fax: [facility] Region Referral ID Status Reason Start Date Expiration Date Visits Re quested Visits Authorized [id number] Closed 08/27/2024 11/27/2025 1 1 Reason for Visit * MRI/CAT/PET Scan (Routine) - Closed Specialty Diagnoses / Procedures Referred By Leo henley Referred To Contact Diagnoses Malignant Neoplasm Of Lung Adenocarcinoma Left (HCC) Procedures PET CT Skull to Thigh FDG PET CT Skull to Thigh FDG Philip Encarnacion M.D. [address] [place] [address] Phone: tel: fax: [facility] Region Referral ID Status Reason Start Date Expiration Date Visits Re quested Visits Authorized [id number] Closed 08/27/2024 11/27/2025 1 1 Encounter Details Date Type Department Care Team (Latest Contact Info) Description 08/29/2024 11:54 AM CDT - 08/29/2024 11:59 PM CDT Hospital Encounter Department of Radiology in [place], [place] [address] [place] [address] hPilip Encarnacion M.D. 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 09/20/2023 documented as of this encounter Plan of Treatment Upcoming Encounters Date Type Department Care Team (Late st Contact Info) Description 10/17/2024 11:00 AM CDT Appointment Department of Radiation Oncology in [place], [place] [address] [place] [address] Philip Encarnacion M.D. [address] [place] [address] documented as of this encounter Procedures Procedure Name Priority Date/Time Associated Diagnosis Comments PET CT SKULL TO THIGH RAD - Routine (most inpatients and all outpatients) 08/29/2024 1:43 PM CDT Malignant Neoplasm Of Lung Adenocarcinoma Left (HCC) documented in this encounter Results * PET CT Skull to Thigh FDG [...] RADIOPHARMACEUTICAL/MEDS: Route: intravenous fludeoxyglucose F 18 injection LONG-TERM (F-18 FDG),13.1 millicurie Procedure Note Donnie Ryan [...] RADIOPHARMACEUTICAL/MEDS: Route: intravenous fludeoxyglucose F 18 injection LONG-TERM (F-18 FDG),13.1 millicurie IMPRESSION: Moderately FDG avid 2.5 cm spiculated right upper lobe pulmonary nodule,concerning for malignancy. No FDG avid anthony or distant metastatic disease. Philip GODWIN [place] PROCEDURES Final Re sult documented in this encounter Visit Diagnoses Diagnosis Malignant Neoplasm Of Lung Adenocarcinoma Left (HCC) documented in this encounter Administered Medications Inactive Administered Medications - up to 3 most recent administrations Medication Order MAR Action Action Date Dose Rate Site fludeoxyglucose F 18 injection LONG-TERM (F-18 FDG) 13.1 millicurie, intravenous, Once, On Kristine 08/29/24 at 1230, For 1 dose, Imaging Protocol Orders Given 08/29/2024 12:10 PM CDT 13.1 millicuries Right Antecubital documented in this encounter
--- OUTSIDE RECORDS SUMMARY | 2024-08-30 11:15 | XMS_ITS | Encounter Summary ---
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 [address] [place] [address] Phone: tel: fax: Philip Encarnacion M.D. 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 [address] [place] [address] Phone: tel: fax: Philip Encarnacion M.D. [address] [place] [address] [place] [address] Phone: tel: fax: Referral ID Status Reason Start Date Expiration Date Visits Re quested Visits Authorized [id number] Closed 08/27/2024 02/26/2026 1 1 Encounter Details Date Type Department Care Team (Latest Contact Info) Description 08/30/2024 11:15 AM CDT - 08/30/2024 11:56 AM CDT Hospital Encounter Department of Radiation Oncology in [place], [place] [address] [place] [phone] Philip Encarnacion M.D. 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 - 08/30/2024 11:30 AM CDT SUBJECTIVE REASON FOR CONSULT 1. 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 ([id number]) HISTORY OF PRESENT ILLNESS Edu Bautista is a 64 y.o. male former smoker with [id number] lung cancer of the left apex.He completed SBRT on April 05, 2024. Surveillance CT imaging on August 21, 2024 demonstrated a newright upper lung nodule. PET-CT imaging was obtained. He returns to review the results. His oncologic history is as follows: Oncology [...] like to pursue Radiation Oncology consultation at [facility]. Notably, the other pulmonary nodules will require [...] Lung Upper Lobe Or Bronchus Right (HCC) 08/21/[address] Chest Impression: New suspicious 2.5 cm spiculated nodule within the right upper lobe. Appropriate action recommended. Similar 1 cm spiculated nodule left lung apex with adjacent left upper lobe nodules. 08/29/2024 Critical Imaging PET-CT IMPRESSION: Moderately FDG avid 2.5 cm spiculated right upper lobe pulmonary nodule, concerning for malignancy. No FDG avid anthony or distant metastatic disease. 09/04/2024 - Radiation Therapy Radiation Therapy Treatment Details (Noted on 08/27/2024) Site: Right Lung Technique: No technique specified Goal: Curative Planned Treatment Start Date: 09/04/2024 INTERVAL HISTORY The patient was seen and examined today with Dr. Encarnacion. The patient denies any changes since our last visit. The patient does have a history of prior radiation therapy. The patient denies a history of connective tissue disorders or inflammatory bowel disease. The patient denies any implanted electronic devices. His ECOG performance status is 0. REVIEW OF SYSTEMS Review of systems was negative except as documented above. PATIENT REPORTED SYMPTOM SCREEN FATIGUE (Scale: 0 = no fatigue; 10 = worst fatigue you can imagine): 1 PAIN (Scale: 0 = no pain; 10 = worst pain you can imagine): 0 OVERALL QUALITY OF LIFE (Scale: 0 = as bad as can be; 10 = as good as can be): 8 OBJECTIVE BP 120/80 (BP Location: Right arm, Patient Position: Sitting, Cuff Size: Regular) Pulse 76 Temp36.7 ??C (Temporal) Wt 56 kg BMI 19.61 kg/m?? PHYSICAL EXAM General: Alert and oriented in no apparent distress. ASSESSMENT / PLAN #1 Stage IA1 (cT1a, cN0, cM0) FDG-avid left apical nodule #2 Additional small pulmonary nodules bilaterally with low-level FDG uptake #3 Chronic obstructive pulmonary disease (FEV1 34%, DLCO 51%; PFTs 03/2024) #4 Tobacco use disorder, [id number] #5 Stereotatic body radiation to a left apical lung tumor initiated 2024; completed April 05, 2024 #[address] scan August 21, 2024 demonstrated new 2.5 cm nodule in the right upper lung; PET/CT August 29, 2024 demonstrated FDG uptake in the right upper lung without anthony or distant disease #7 Stage IA3 (cT1c, cN0, cM0) FDG avid right upper lung nodule It was a pleasure to meet with Sully today. Recent surveillance CT imaging demonstrated anew 2.5 cm nodule in the right upper lung. We obtained a PET-CT for further evaluation. This demonstrated FDG uptake in the right upper lung without evidence of anthony or distant disease. We had a detailed discussion regarding the risks, benefits, and alternatives of radiotherapy in this setting. Wediscussed the recommendation for radiation treatment to the right upper lung in 3 or 5 fractions. I discussed the logistics as well as the acute and chronic side effects of radiotherapy. The acute side effects may include, but are not limited to, fatigue, shortness of breath, skin irritation, cough, and pain and/or difficulty with swallowing with a rare need for hospitalization. A delayed side effect could include radiation pneumonitis or chest wall pain. Long-term side effects can be rare and may include, but not limited to, heart damage (with left-sided treatment), ulceration or narrowingof the esophagus, broken rib, hemorrhage of a blood vessel that could be fatal, spinal cord damage,chronic shortness of breath or bronchial collapse, chronic chest wall pain, or secondary malignancy. The patient was provided with a written summary of recommendations. His questions were answered tohis verbalized satisfaction. After discussion, the patient verbally stated that he would like to proceed with treatment. He willundergo CT simulation today. We anticipate starting radiation therapy in the next 1-2 weeks. Patient seen in collaboration with Dr. Encarnacion, please review his attestation for additional information.The patient was provided with our contact information. He was asked to contact us with questions orconcerns. He verbally expressed his understanding of the plan. EDUCATION Ready to learn, no apparent learning barriers were identified; learning preferences include listening. Explained diagnosis and treatment plan; patient expressed understanding of the content. CONSENT Discussed the risks, benefits, alternatives, and the necessity of other members of the healthcare team participating in the procedure. All questions answered. I personally spent 20 minutes in care of the patient today. Time includes both non face to face andface to face patient care. Signed by: Gypsy Zimmer APRN, C.N.P., Claude 08/30/2024 12:03 PM CDT [facility] [address] [place] [id number] Cosigned by Philip Encarnacion M.D. at 08/30/2024 1:56 PM CDT Associated attestation - Philip Encarnacion M.D. - 08/30/2024 1:56 PM CDT I saw and evaluated the patient and participated in the salcedo portions of the service. I reviewed thedocumentation of Gypsy Zimmer C.N.P. and agree with the findings and plan. Edu Bautista is a 64 y.o. male with stage IA1 (cT1a, cN0, cM0) FDG- avid left apical tla-lzjca-ocyi lung cancer. He completed SBRT on April 05, 2024. He returns after his CT scan last week showed a new right upper lobe lesion. A PET/CT scan that was obtained yesterday this shows FDG avidity in the 2.5 cm spiculated right upper lobe pulmonary nodule with no other areas of avidity. As we discussed at last visit, my recommendation is for stereotactic body radiotherapy either to a dose of 54 Gy in 3 fractions or 50 Gy in 5 fractions. SBRT is indicated because of the immediately adjacent dose delivered in March in his left lung and so as to spare high radiation dose to the adjacent trachea, spinal cord, and proximal bronchial tree. We reviewed the logistics as well as the side effects of treatment. For a complete listing of these, please see Ms. Zimmer's note. After this discussion, the patient's questions and those of his spouse were answered to their verbalized satisfaction. We provided them with a written summary of our recommendations. He stated that he would like to proceed with treatment and will undergo CT simulation today. We will endeavor to begin treatment on Monday, September 09, 2024. He verbalized satisfaction with this plan. I have spent 15 minutes caring for this patient including zxlf-dv-vbmk and bjj-izpy-jn-face time. Signed by: Philip Encarnacion M.D. 08/30/24 1:56 PM CDT [facility] [place] documented in this encounter Miscellaneous Notes * Addendum Note - Nicole Dorsey - 08/30/2024 11:30 AM CDTEncounter addended by: Nicole Dorsey on: 08/30/2024 1:58 PM Actions taken: Letter saved documented in this encounter Plan of Treatment Upcoming Encounters Date Type Department Care Team (Late st Contact Info) Description 10/17/2024 11:00 AM CDT Appointment Department of Radiation Oncology in [place], [place] [address] [place] [address] Philip Encarnacion M.D. 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
--- OUTSIDE RECORDS SUMMARY | 2024-08-30 11:57 | XMS_ITS | Encounter Summary ---
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 [address] [place] [address] Phone: tel: fax: [facility] Radiation Oncology at [address] [phone] Referral ID Status Reason Start Date Expiration Date V isits Requested Visits Authorized [id number] Authorized 08/30/2024 11/27/2025 2 2 Encounter Details Date Type Department Care Team (Latest Contact Info) Description 08/30/2024 11:57 AM CDT - 08/30/2024 1:59 PM CDT Hospital Encounter Department of Radiation Oncology in [place], [place] [address] [place] [address] Philip Encarnacion M.D. 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 Slope Hoist Operator use:No Cosigned by Philip Encarnacion M.D. at 08/30/2024 1:58 PM CDT Associated attestation - Philip Encarnacion M.D. - 08/30/2024 1:58 PM CDT I was available for the entirety of the procedure but only present for image review. Signed by: Philip Encarnacion M.D. 08/30/24 1:58 PM CDT [facility] [place] documented in this encounter Plan of Treatment Upcoming Encounters Date Type Department Care Team (Late st Contact Info) Description 10/17/2024 11:00 AM CDT Appointment Department of Radiation Oncology in [place], [place] [address] [place] [phone] Philip Encarnacion M.D. 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 CT images were transferred to the Power[employer] treatment planning system, after a reference isocenter was determined and marked. Segmentation and treatment planning will take place prior to treatment delivery. Patient set up and imaging was appropriate and completed without incident. Slope Hoist Operator use:No us Philip Encarnacion M.D. 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
--- OUTSIDE RECORDS SUMMARY | 2024-09-16 10:55 | XMS_ITS | Encounter Summary ---
Author Organization [facility] Address [address] [place] [address] Care Team Providers Care Projection Camera Operator Name Role Phone Unavailable Primary Care Provider Unavailabl e Encounter Details Date Type Department Care Team (Late st Contact Info) Description 09/16/2024 10:55 AM CDT - 09/16/2024 11:59 PM CDT Hospital Encounter Department of Laboratory Medicine in [place], [place] [address] [place] [address] Gypsy Zimmer APRN, C.N.P., D.N.P. 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) documented in this encounter Results * Comprehensive Metabolic Panel (09/16/2024 11:01 AM CDT) Potassium, P 4.5 3.6 - 5.2 mmol/L 09/16/2024 4:10 PM CDT [facility] Sodium, P 137 135 - 145 mmol/L 09/16/2024 4:10 PM CDT NPR[facility] Chloride, P 101 98 - 107 mmol/L 09/16/2024 4:10 PM CDT NPR[facility] Bicarbonate, P 24 22 - 29 mmol/L 09/16/2024 4:09 PM CDT [facility] Anion Gap, P 12 7 - 15 09/16/2024 4:10 PM CDT [facility] BUN (Blood Urea Nitrogen), P 21 8 - 24 mg/dL 09/16/2024 4:09 PM CDT [facility] Creatinine 0.85 0.74 - 1.35 mg/dL 09/16/2024 4:09 PM CDT [facility] Estimated GFR (eGFR) >90 >=60 mL/min/BS A 09/16/2024 4:09 PM CDT [facility] Comment: Estimated GFR calculated using the 2020 CKD_EPI creatinine equation. Calcium, Total, P 9.3 8.8 - 10.2 mg/dL 09/16/2024 4:09 PM CDT [facility] Glucose, P 123 70 - 140 mg/dL 09/16/2024 4:09 PM CDT [facility] Protein, Total, P 7.0 6.3 - 7.9 g/dL 09/16/2024 4:09 PM CDT NPR[facility] Albumin, P 4.1 3.5 - 5.0 g/dL 09/16/2024 4:09 PM CDT [facility] Aspartate Aminotransferase (AST), P 26 8 - 48 U/L 09/16/2024 4:09 PM CDT [facility] Alkaline Phosphatase, P 96 40 - 129 U/L 09/16/2024 4:09 PM CDT [facility] Alanine Aminotransferase (ALT), P 26 7 - 55 U/L 09/16/2024 4:09 PM CDT NPR[facility] Bilirubin, Total, P 0.6 0.0 - 1.2 mg/dL 09/16/2024 4:09 PM CDT [facility] Blood (Blood, Venous) 09/16/2024 11:01 AM CDT 09/16/2024 3:32 PM CDT Gypsy Zimmer APRN, C.N.P., D.N.P. LAB BLOO D ADD-ON Final Result [facility] [address] [place] [address], [facility] NPRG [facility] [address] [place] [address] * (ABNORMAL) CBC with Differential, Blood (09/16/2024 11:01 AM CDT) Hemoglobin 13.1(L) 13.2 - 16.6 g/dL 09/16/2024 3:52 PM CDT NPR[facility] Hematocrit 40.2 38.3 - 48.6 % 09/16/2024 3:52 PM CDT NPR[facility] Erythrocytes 4.22(L) 4.35 - 5.65 x10(12)/L 09/16/2024 3:52 PM CDT [facility] MCV 95.3 78.2 - 97.9 fL 09/16/2024 3:52 PM CDT NPR[facility] RBC Distrib Width 12.0 11.8 - 14.5 % 09/16/2024 3:52 PM CDT [facility] Platelet Count 229 135 - 317 x10(9)/L 09/16/2024 3:52 PM CDT [facility] Leukocytes 12.0(H) 3.4 - 9.6 x10(9)/L 09/16/2024 3:52 PM CDT NPR[facility] Neutrophils 9.14(H) 1.56 - 6.45 x10(9)/L 09/16/2024 3:52 PM CDT [facility] Lymphocytes 1.02 0.95 - 3.07 x10(9)/L 09/16/2024 3:52 PM CDT NPR[facility] Monocytes 1.52(H) 0.26 - 0.81 x10(9)/L 09/16/2024 3:52 PM CDT NPR[facility] Eosinophils 0.31 0.03 - 0.48 x10(9)/L 09/16/2024 3:52 PM CDT NPR[facility] Basophils <0.04 0.01 - 0.08 x10(9)/L 09/16/2024 3:52 PM CDT [facility] Blood (Blood, Venous) 09/16/2024 11:01 AM CDT 09/16/2024 3:32 PM CDT Gypsy Zimmer APRN, C.N.P., D.N.P. 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
[2024-09-17] VITALS (18 sets, daily range): BP systolic 116–136; BP diastolic 76–85; PULSE 85–100; RESP 17–26; TEMP 37.7; O2SAT 93–97; BMI 17.8
--- OUTSIDE RECORDS SUMMARY | 2024-09-17 08:43 | XMS_ITS | Encounter Summary ---
Author Organization [facility] Address [address] [place] [address] Care Team Providers Care Attendant [employer] Store Name Role Phone Unavailable Primary Care Provider Unavailabl e Reason for Referral * Outpatient (Routine) - Closed Specialty Diagnoses / Procedures Referred By Contac t Referred To Contact Radiation Oncology Gypsy Zimmer APRN, C.N.PScott, D.N.PScott [address] [place] [phone] Phone: tel: fax: Philip Encarnacion M.D. [address] [place] [phone] Phone: tel: fax: Referral ID Status Reason Start Date Expiration Date Visits Re quested Visits Authorized [id number] Closed 09/16/2024 03/18/2026 1 1 Reason for Visit * Outpatient (Routine) - Closed Specialty Diagnoses / Procedures Referred By Contac t Referred To Contact Radiation Oncology Gypsy Zimmer APRN, C.N.PScott, D.N.PScott [address] [place] [phone] Phone: tel: fax: Philip Encarnacion M.D. [address] [place] [address] Phone: tel: fax: Referral ID Status Reason Start Date Expiration Date Visits Re quested Visits Authorized [id number] Closed 09/16/2024 03/18/2026 1 1 Encounter Details Date Type Department Care Team (Latest Contact Info) Description 09/17/2024 8:43 AM CDT Hospital Encounter Department of Radiation Oncology in [place], [place] [address] [place] [phone] Philip Encarnacion M.D. 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 Gender Identity Not on file Sexual Orientation Not on file documented as of this encounter Last Filed Vital Signs Vital Sign Reading Time Taken Comments Blood Pressure 137/77 09/17/2024 8:53 AM CDT Pulse 99 09/17/2024 8:53 AM CDT Temperature 37.3 C (99.1 F) 09/17/2024 8:53 AM CDT Respiratory Rate - - Oxygen Saturation 96% 09/17/2024 8:54 AM CDT walking Inhaled Oxygen Concentration - - Weight 55.1 kg (121 lb 7.6 oz) 09/17/2024 8:53 A M CDT Height - - Body Mass Index 19.29 03/12/2024 1:06 PM 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 [address] [place] [address] Scheduled Referrals Name Type Priority Associated Diagnoses Order Schedule Radiation Oncology office visit (clinic) Outpatient Referral Routine Once for 1 Occurrences starting 09/17/2024 until 09/17/2024 documented as of this encounter Visit Diagnoses Diagnosis Malignant Neoplasm Of Lung Adenocarcinoma Left (HCC)- Primary documented in this encounter
--- OUTSIDE RECORDS SUMMARY | 2024-09-17 09:42 | XMS_ITS ---
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 Past Treatment and Therapy Plans No past plan information found. Past Radiation Episodes * SBRT: Left LungOverview* First Treatment Date Last Treatment Date Treatment Site Technique Goal Episode Provider 2024 04/05/2024 Left Lung SBRT Curative * Linked Problems Malignant Neoplasm Of Lung A denocarcinoma Left Treatment Courses* Course [id number] 2024 - 04/05/2024 Treatment Period Fraction Dose Fractions Total Dose Plans Planned [id number] 2024 - 04/05/2024 1,800 cGy 3 / 3 5,400 cGy Reference Points Delivered [id number] 2024 - 04/05/2024 5,400 cGy
--- OUTSIDE RECORDS SUMMARY | 2024-09-17 09:43 | XMS_ITS | Clinical Summary ---
Author Organization [facility] Address [address] [place] [address] Care Team Providers Care Assistant Community Manager Name Role Phone Unavailable Primary Care Provider Unavailabl e Source Comments Patient records contain information from all sites at [facility]. For routine questions regarding patient records, call [phone] during business hours, M-F 8:00 AM - 5:00 PM Central Time. Record requests for emergency care only can be directed to [phone] at any time.[facility] Allergies Active Allergy Reactions Criticality Noted Date Comments Codeine Anxiety High 03/12/2024 Medications atorvastatin (Lipitor) 20 mg tablet Take 20 mg by mouth at bedtime. 4 Active buPROPion (Wellbutrin SR) 150 mg 12 hr tablet Take 150 mg by mouth 2 (two) times a day. 4 Active fluticasone propion-salmeter oL (Advair Diskus) 250-50 mcg/dose diskus inhaler Inhale 1 puff 2 (two) times a day. 4 Active gabapentin (Neurontin) 300 mg capsule Take 300 mg by mouth daily. 4 Active tamsulosin (Flomax) 0.4 mg 24 hr capsule Take 0.4 mg by mouth daily. 4 Active tiotropium (Spiriva Respimat) 2.5 mcg/actuation inhaler Inhale 2 puffs daily as needed. 4 Active albuterol 90 mcg/actuation inhaler Inhale 2 puffs as needed for wheezing. Active magnesium citrate solution 250 mL daily. Active acetaminophen (TylenoL) 325 mg suppository Insert 325 mg into the rectum as needed for pain. Active ibuprofen 600 mg tablet 600 mg as needed for pain. Active ipratropium-albu teroL (DuoNeb) 0.5-2.5 mg/3 mL nebulizer solution 5 Active amoxicillin-pot clavulanate (Augmentin) 875-125 mg per tabletIndication s:Nodule Pulmonary Take 1 tablet by mouth 2 (two) times a day for 7 days. 14 tablet 5 09/11/19 25 azithromycin (Zithromax) 250 mg tabletIndication s:Nodule Pulmonary Take 2 tablets (500 mg) on day 1 and then 1 tablet (250 mg) on days 2-5. 6 tablet 5 09/09/19 25 Active Problems Problem Noted Date Diagnosed Date Malignant Neoplasm Of Lung Upper Lobe Or Bronchu s Right 08/27/2024 Malignant Neoplasm Of Lung Adenocarcinoma Left 0 03/15/2024 Cancer Staging:Clinical stage from 02/19/2024:Stage IA1(cT1a, cN0, cM0) - Unsigned Encounters Date Type Department Care Team Description 09/17/2024 8:43 AM T Hospital Encounter Department of Radiation Oncology in [address] [phone] Philip Encarnacion M.D. Malignant Neoplasm Of Lung Adenocarcinoma Left (HCC) (Primary Dx) 09/16/2024 10:55 AM CDT - 09/16/2024 11:59 PM T Hospital Encounter Department of Laboratory Medicine in [address] [phone] Gypsy Zimmer APRN, C.N.P., D.N.P. Malignant Neoplasm Of Lung Adenocarcinoma Left (HCC); Malignant Neoplasm Of Lung Upper Lobe Or Bronchus Right (HCC) Discharge Disposition: Home or Self Care 09/16/2024 Clinical Communication Department of Radiation Oncology in [address] [address] Philip Encarnacion M.D. 09/03/2024 Clinical Communication Department of Radiation Oncology in [address] [address] Philip Encarnacion M.D. Results 08/30/2024 11:57 AM CDT - 08/30/2024 1:59 PM CDT Hospital Encounter Department of Radiation Oncology in [address] [address] Philip Encarnacion M.D. Malignant Neoplasm Of Lung Upper Lobe Or Bronchus Right (HCC) 08/30/2024 11:15 AM CDT - 08/30/2024 11:56 AM CDT Hospital Encounter Department of Radiation Oncology in [address] [address] Philip Encarnacion M.D. Malignant Neoplasm Of Lung Upper Lobe Or Bronchus Right (HCC) (Primary Dx) 08/29/2024 11:54 AM CDT - 08/29/2024 11:59 PM CDT Hospital Encounter Department of Radiology in [place], [place] [address] [address] Philip Encarnacion M.D. Malignant Neoplasm Of Lung Adenocarcinoma Left (HCC) Discharge Disposition: Home or Self Care 08/27/2024 3:19 PM CDT - 08/27/2024 4:59 PM CDT Hospital Encounter Department of Radiation Oncology in [address] [address] Philip Encarnacion M.D. Malignant Neoplasm Of Lung Adenocarcinoma Left (HCC) (Primary Dx); Malignant Neoplasm Of Lung Upper Lobe Or Bronchus Right (HCC) 07/22/2024 Clinical Communication Department of Radiation Oncology in [address] [address] Philip Encarnacion M.D. 07/16/2024 Clinical Communication Department of Radiation Oncology in [address] [phone] Gypsy Zimmer APRN, C.N.P., D.N.P. 07/02/2024 2:07 PM CDT - 07/06/2024 9:57 PM CDT Hospital Encounter Department of Radiation Oncology in [place], [place] [address] [place] [phone] Philip Encarnacion M.D. Malignant Neoplasm Of Lung Adenocarcinoma Left (HCC) (Primary Dx) from Last 3 Months Family History Medical History Relation Name Comments Throat cancer Brother 1 Thyroid cancer Brother 1 Liver cancer Brother 2 Liver cancer Father Liver cancer Mother Lung cancer Sister 1 Breast cancer Sister 2 Relation Name Status Comments Brother 1 Brother 2 Father Mother Sister 1 Sister 2 Social History Tobacco Use Types Packs/Day Years Used Date Smoking Tobacco: Former Cigarettes 1 50 1 975 - 02/2024 Smokeless Tobacco: Never Tobacco Cessation:Counseling Given: Not Answered Alcohol Use Standard Drinks/Week Comments Not Currently 0 (1 standard drink = 0.6 oz pure alcohol) 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 Gender Identity Not on file Sexual Orientation Not on file Last Filed Vital Signs Vital Sign Reading Time Taken Comments Blood Pressure 137/77 09/17/2024 8:53 AM CDT Pulse 99 09/17/2024 8:53 AM CDT Temperature 37.3 C (99.1 F) 09/17/2024 8:53 AM CDT Respiratory Rate - - Oxygen Saturation 96% 09/17/2024 8:54 AM CDT walking Inhaled Oxygen Concentration - - Weight 55.1 kg (121 lb 7.6 oz) 09/17/2024 8:53 A M CDT Height 169 cm (5' 6.54) 03/12/2024 1:06 PM PARTS PROFESSIONAL Body Mass Index 19.29 03/12/2024 1:06 PM PARTS PROFESSIONAL Plan of Treatment Upcoming Encounters Date Type Department Care Team (Late st Contact Info) Description 10/17/2024 11:00 AM CDT Appointment Department of Radiation Oncology in [address] [address] Philip Encarnacion M.D. [address] [place] [address] Health Maintenance Due Date Last Done Comments CT Colonography 1960 Cologuard 1960 Colonoscopy 1960 Colorectal Cancer Screening 1960 FIT 1960 HIV Screening 1960 Hepatitis C Screening 1960 Lipid (Cholesterol) Screening 1960 COVID-19 Vaccine (#1) 1965 Zoster Vaccines (1 of 2) 1979 RSV vaccine - (32-3 6 weeks) or 60+ years (1 - Risk 60-74 years 1-dose series) 2020 Depression Screening (Annual PHQ-2) 02/07/2024 Influenza Vaccine (#1) 2024 Fasting Glucose for Diabetes Screening 09/17/2027 09/16/2024 DTaP,Tdap,and Td Vaccines (3 - Td or Tdap) 10/08/2031 10/07/2021, 11/08/2011 Pneumococcal vaccine (50+ years) Completed 07/09/2024 HPV Vaccines Aged Out No longer eligi ble based on patient's age to complete this topic IPV Vaccines Aged Out No longer eligi ble based on patient's age to complete this topic Procedures Procedure Name Priority Date/Time Associated Diagnosis Comments COMPREHENSIVE METABOLIC PANEL, S/P Routine 09/16/2024 11:01 AM CDT Malignant Neoplasm Of Lung Adenocarcinoma Left (HCC) Malignant Neoplasm Of Lung Upper Lobe Or Bronchus Right (HCC) CBC WITH DIFFERENTIAL, B Routine 09/16/2024 11:01 AM CDT Malignant Neoplasm Of Lung Adenocarcinoma Left (HCC) Malignant Neoplasm Of Lung Upper Lobe Or Bronchus Right (HCC) INITIAL RAD ONC TREATMENT PLANNING CT SIMULATION Routine 08/30/2024 12:30 PM CDT Malignant Neoplasm Of Lung Upper Lobe Or Bronchus Right (HCC) PET CT SKULL TO THIGH RAD - Routine (most inpatients and all outpatients) 08/29/2024 1:43 PM CDT Malignant Neoplasm Of Lung Adenocarcinoma Left (HCC) OUTSIDE CT BODY Routine 08/21/2024 4:[address] BODY Routine 06/28/2024 10:05 AM CDT from Last 3 Months Results * (ABNORMAL) CBC with Differential, Blood (09/16/2024 [...] 11:01 AM CDT 09/16/2024 3:32 PM CDT Juan Alberto Roy APRN.N.P., D.N.P. LAB BLOO D ADD-ON Final Result [facility] [address] [place] [address], [facility] [address] [place] [address] * Comprehensive Metabolic Panel (09/16/2024 11:01 AM CDT) Pathologist [facility] Potassium, P 4.5 3.6 - 5.2 mmol/L [...] D.N.P. LAB BLOO D ADD-ON Final Result [facility] [address] [place] [address], [facility] [address] [place] [address] * Initial Rad Onc Treatment Planning CT Simulation (08/30/2024 12:30 PM CDT) Narrative [facility] - 08/30/2024 12:30 PM CDT Philip Encarnacion [...] imaging was appropriate and completed without incident. Senior Functional Analyst use:No us Philip Encarnacion M.D. RADIATION ONCOLOGY [...] RADIOPHARMACEUTICAL/MEDS: Route: intravenous fludeoxyglucose F 18 injection CUSTODIAL (F-18 FDG),13.1 millicurie Procedure Note Donnie Ryan [...] RADIOPHARMACEUTICAL/MEDS: Route: intravenous fludeoxyglucose F 18 injection CUSTODIAL (F-18 FDG),13.1 millicurie IMPRESSION: Moderately FDG avid 2.5 cm spiculated right upper lobe pulmonary nodule,concerning for malignancy. No FDG avid anthony or distant metastatic disease. Philip GODWIN NM PROCEDURES Final Re sult * CT CHEST WO CON-Outside CT Body (08/21/2024 4:05 PM CDT) Only the most recent of2 resultswithin the time period is included. Narrative [facility] - 08/22/2024 10:35 AM CDT This order has been created and auto-finalized to support the import of outside images. If available, original interpretation can be found on the Media Tab in Chart Review, in Document Viewer, as an image in InfinityView or as an Addendum. If a re-interpretation or overread is required please follow defined workflow. us Provider Not In System IMG CT PROCEDURES Final R esult II NA from Last 3 Months Insurance [facility]
--- OUTSIDE RECORDS SUMMARY | 2024-09-17 09:43 | XMS_ITS | Clinical Summary ---
Author Organization [facility] Address [address] [place] [address] Care Team Providers Care Television Repair Teacher Name Role Phone Ashley Morales SPINNER TENDER Primary Care Provider Addie vailable Medications atorvastatin (LIPITOR) 20 mg tablet Take 20 mg by mouth at bedtime. 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 Gender Identity Not on file Sexual Orientation Not on file Obstetrics History Last Filed Vital Signs Vital Sign Reading Time Taken Comments Blood Pressure 132/80 11/28/2023 11:23 AM CDT Pulse 71 11/28/2023 11:23 AM CDT Temperature - - Respiratory Rate - - Oxygen Saturation 99% 11/28/2023 11:23 AM CDT Inhaled Oxygen Concentration - - Weight 55.8 kg (123 lb) 11/28/2023 11:23 AM CDT Height 172.7 cm (5' 8) 11/28/2023 11:23 AM CDT Body Mass Index 18.7 11/28/2023 11:23 AM CDT Plan of Treatment Health Maintenance Due Date Last Done Comments Tetanus booster 1971 Depression screening for age 12+ 1972 HIV for age 15-65 1975 Hepatitis C screening for ag e 18-79 1978 Pneumococcal series for age 50+ (1 of 2 - PCV) 1979 Colonoscopy through age 75 2005 Lipids for age 45-75 2005 Zoster (shingles) series for age 50+ (1 of 2) 2010 COVID-19 vaccine series ( - season) 2023 Influenza Vaccine (#1) 2024 BMI (ht and wt on same day) for age 18+ 11/27/2024 11/28/2023 RSV vaccine for adults or (1 - 1-dose 75+ series) 2035 Hepatitis B series for 19+ Aged Out N o longer eligible based on patient's age to complete this topic Procedures Procedure Name Priority Date/Time Associated Diagnosis Comments LAB TRACKING EVENT Routine 07/09/2024 4: 35 PM CDT CBC WITH AUTO DIFFERENTIAL Routine 07/09/2024 4:35 PM CDT RETICULOCYTES Routine 07/09/2024 4:35 PM CDT CBC WITH AUTO DIFFERENTIAL Routine 07/09/2024 4:35 PM CDT PERIPHERAL BLD MORPHOLOGY Routine 07/09/2024 4:27 PM CDT from Last 3 Months Results * LAB TRACKING EVENT (07/09/2024 4:35 PM CDT) Other (Other) Client Collect / Unknown 07/09/2024 4:35 PM CDT 07/11/2024 1:44 PM CDT us Ashley Morales NP LAB BILL ONLY Final Resu lt [facility] [address] [place] [address], * (ABNORMAL) CBC WITH AUTO DIFFERENTIAL (07/09/2024 4:35 PM CDT) WHITE BLOOD COUNT 10.7 4.5 - 11.0 thou/cu mm 07/11/2024 1:54 PM CDT [facility] RED BLOOD COUNT 4.20(L) 4.30 - 5.90 mil/cu mm 07/11/2024 1:54 PM CDT [facility] HEMOGLOBIN 13.0(L) 13.5 - 17.5 g/dL 07/11/2024 1:54 PM CDT [facility] HEMATOCRIT 40.1 37.0 - 53.0 % 07/11/2024 1:54 PM CDT [facility] MCV 96 80 - 100 fL 07/11/2024 1:54 PM CDT [facility] MCH 31.0 26.0 - 34.0 pg 07/11/2024 1:54 PM CDT [facility] MCHC 32.4 32.0 - 36.0 g/dL 07/11/2024 1:54 PM CDT [facility] RDW 11.9 11.5 - 15.5 % 07/11/2024 1:54 PM CDT [facility] PLATELET COUNT 238 140 - 440 thou/cu mm 07/11/2024 1:54 PM CDT [facility] MPV 10.3 6.5 - 11.0 fL 07/11/2024 1:54 PM CDT [facility] NRBC 0.0 % 07/11/2024 1:54 PM CDT [facility] ABS NRBC 0.0 thou /cu mm 07/11/2024 1:54 PM CDT [facility] % NEUT 75.4 % 07/11/2024 1:54 PM CDT [facility] % LYMPH 10.2 % 07/11/2024 1:54 PM CDT [facility] % MONO 10.7 % 07/11/2024 1:54 PM CDT [facility] % EOS 2.7 % 07/11/2024 1:54 PM CDT [facility] % BASO 0.7 % 07/11/2024 1:54 PM CDT [facility] % IMMATURE GRAN (METAS,MYELOS,DC OS) 0.3 % 07/11/2024 1:54 PM CDT [facility] ABSOLUTE NEUTROPHILS 8.1(H) 1.7 - 7.0 thou/cu mm 07/11/2024 1:54 PM CDT [facility] ABSOLUTE LYMPHOCYTES 1.1 0.9 - 2.9 thou/cu mm 07/11/2024 1:54 PM CDT [facility] ABSOLUTE MONOCYTES 1.2(H) <0.9 thou/cu mm 07/11/2024 1:54 PM CDT [facility] ABSOLUTE EOSINOPHILS 0.3 <0.5 thou/cu mm 07/11/2024 1:54 PM CDT [facility] ABSOLUTE BASOPHILS 0.1 <0.3 thou/cu mm 07/11/2024 1:54 PM CDT [facility] ABSOLUTE IMMATURE GRANULOCYTES(MET ,MYELOS,PROS) 0.0 <0.3 thou/cu mm 07/11/2024 1:54 PM CDT [facility] Blood BLOOD SPECIMEN / Unknown Client Collect / Unknown 07/09/2024 4:35 PM CDT 07/11/2024 1:44 PM CDT Ashley Morales NP HEMATOLOGY Final Resu lt Performing Organization Address [facility] de Phone Number [facility] [address] [place] [address], [place] * RETICULOCYTES (07/09/2024 4:35 PM CDT) RETIC% 0.9 0.5 - 1.5 % 07/11/2024 1:54 PM CDT [facility] RETIC (ABSOLUTE) 0.04 0.03 - 0.08 mil/cu mm 07/11/2024 1:54 PM CDT [facility] Blood BLOOD SPECIMEN / Unknown Client Collect / Unknown 07/09/2024 4:35 PM CDT 07/11/2024 1:44 PM CDT Ashley Morales SPINNER TENDER HEMATOLOGY Final Resu lt Performing Organization Address [facility] de Phone Number [facility] [address] [place] [address], [place] * PERIPHERAL BLD MORPHOLOGY (07/09/2024 4:27 PM CDT) Case Report Special Hematology Report Case: [id number] Authorizing Provider: Ashley Morales NP Collected: 07/09/2024 1627 Ordering Location: [facility] Received: 07/11/2024 1414 Pathologist: Derrell Viramontes MD Specimen: Peripheral Blood 07/14/2024 5:15 PM CDT [facility] Final Diagnosis PERIPHERAL BLOOD: 1. Mild normocytic anemia 2. Mild absolute neutrophilia with monocytosis, favor reactive 3. See comment 07/14/2024 5:15 PM CDT [facility] at 1715 CDT Comment The specific etiology of the anemia is not apparent from the blood smear findings. Normocytic anemia may be associated with a variety of conditions, including anemia of chronic disease, hypothyroidism, active bleeding, early iron deficiency, or medication effect. The morphologic features are not suggestive of hemolysis. There are no morphologic features to suggest the etiology of the neutrophilia and monocytosis. The findings may be reactive. There are no definitive dysplastic features. However, if the neutrophilia and monocytosis persist without etiology, increase in magnitude, or additional hemogram abnormalities develop (over the next six to nine months), consideration should be given to repeating a peripheral blood morphology study. This case was also reviewed by Dina Ortiz MT, MS (ASCP). 07/14/2024 5:15 PM CDT [facility] Clinical Information The patient is a 64-year-old male. Pertinent clinical information: Bruising and lung cancer Per EPIC: Additional history includes tobacco use and lung cancer SP SBRT 04/05/2024. 07/14/2024 5:15 PM CDT [facility] CBC and Differential HEMATOLOGY PARAMETERS Tested at: [facility] RESULTS EXPECTED VALUES WBC: 10.7 4.5-93a5251/cum m RBC: 4.2 4.30-5.90 mil/cumm DECREASED HGB: 13.0 13.5-17.5 gm/di DECREASED HCT: 40.1 37-53% MCV: 96.0 80-100 fl NORMOCYTIC MCH: 31.0 26-34 pg MCHC: 32.4 32-36 gm/dl NORMOCHROMIC RDW: 11.9 11.5-15.5% PLT: 238 140-512b5084/uL MPV: 10.3 6.5-11 fl Retic: 0.9 0.5-1.5% Differential Tested at: [facility] Absolute (%) Expected (%) (x10*9/L) (x10*9/L) Neutrophils: 8.1 (75.4) 1.7-7.0 (42-72%) ELEVATED Lymphocytes: 1.1 (10.3) 0.9-2.9 (20-44%) Monocytes: 1.2 (11.2) <0.9 (0-11%) ELEVATED Eosinophils: 0.3 (2.8) <0.5 (0-2%) Basophils: 0.1 (.9) <0.3 (<3.0%) 07/14/2024 5:15 PM CDT [facility] Reticulocytes Retic: 0.9 0.5-1.5% 07/14/2024 5:15 PM CDT [facility] Microscopic Description The final diagnosis is based on microscopic examination of an appropriately stained blood smear. 07/14/2024 5:15 PM CDT [facility] Additional Information Interpreted at [facility] - [address] [place] [address] [address], [place] [address] 07/14/2024 5:15 PM CDT [facility] Blood (Peripheral Blood) 07/09/2024 4:27 PM CDT 07/11/2024 2:14 PM CDT us Ashley Morales NP HEMATOLOGY Final Resu lt [facility] [address] [place] [address], from Last 3 Months Insurance [facility] Care Teams Television Repair Teacher Relationship Specialty Start Date End Date Ashley Morales NP [address], [place] [address] PCP - General Emergency Medicine 02/06/22
--- OUTSIDE RECORDS SUMMARY | 2024-09-17 09:44 | XMS_ITS | Encounter Summary ---
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 [address] [place] [phone] Phone: tel: fax: [facility] Referral ID Status Reason Start Date Expiration Date V isits Requested Visits Authorized [id number] Authorized 09/03/2024 03/05/2026 [address] chest at [facility] * MRI/CAT/PET Scan (Routine) - Authorized Specialty Diagnoses / Procedures Referred By Conteric t Referred To Contact Radiology Diagnoses Nodule Pulmonary Procedures CT Chest with IV Contrast Philip Encarnacion M.D. [address] [place] [phone] Phone: tel: fax: [facility] Referral ID Status Reason Start Date Expiration Date V isits Requested Visits Authorized [id number] Authorized 09/03/2024 12/04/2025 1 1 Reason for Visit * Reason Onset Date Comments Results 09/03/2024 Encounter Details Date Type Department Care Team (Late st Contact Info) Description 09/03/2024 Clinical Communication Department of Radiation Oncology in [employer], [place] [address] [place] [phone] Philip Encarnacion M.D. 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 - 09/03/2024 1:46 PM CDT DIAGNOSIS 1. 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 INTERVAL HISTORY Edu Bautista is a 64 y.o. male with the above diagnosis. ASSESSMENT / PLAN #1 Stage IA1 (cT1a, cN0, cM0) FDG-avid left apical nodule #2 Additional small pulmonary nodules bilaterally with low-level FDG uptake #3 Chronic obstructive pulmonary disease (FEV1 34%, DLCO 51%; PFTs 03/2024) #4 Tobacco use disorder, [id number] #5 Stereotatic body radiation to a left apical lung tumor initiated 2024; completed April 05, 2024 #[address] scan August 21, 2024 demonstrated new 2.5 cm nodule in the right upper lung; PET/CT August 29, 2024 demonstrated FDG uptake in the right upper lung without anhtony or distant disease #7 FDG avid right upper lung nodule The patient's case was reviewed at multidisciplinary lung tumor board today. Consensus was that this is more likely an infectious process in his right upper lobe than a malignancy with the recommendation for observation with repeat imaging. I called and discussed this with the patient. I also called his Emiliana and discuss it with her. They are both in agreement to proceed with short course of antibiotic therapy with amoxicillin clavulanate twice daily and a Z- Barron. We will repeat a chest CTscan in 6 weeks at [facility]. I will see him soon after to go over the results. They bothverbalized satisfaction with this plan and were appreciative of the calls. Signed by: Philip Encarnacion M.D. 09/03/2024 1:48 PM CDT documented in this encounter Plan of Treatment Upcoming Encounters Date Type Department Care Team (Late st Contact Info) Description 10/17/2024 11:00 AM CDT Appointment Department of Radiation Oncology in [place] [employer], [place] [address] [place] [phone] Philip Encarnacion M.D. [address] [place] [address] Scheduled Orders Name Type Priority Associated Diagnoses Order Schedule CT Chest with IV Contrast Imaging RAD - Routine (most inpatients and all outpatients) Nodule Pulmonary Expected: 10/15/2024, Expires: 12/04/2025 Creatinine with Estimated GFR Lab Routine Nodule Pulmonary 1 Occurrences starting 09/03/2024 until 12/04/2025 Scheduled Referrals Name Type Priority Associated Diagnoses Orde r Schedule Radiation Oncology office visit (clinic) Outpatient Referral Routine Expected: 10/16/2024 (Approximate), Expires: 12/04/2025 documented as of this encounter Visit Diagnoses Diagnosis Malignant Neoplasm Of Lung Upper Lobe Or Bronchus Right (HCC)- Primary Nodule Pulmonary documented in this encounter
--- OUTSIDE RECORDS SUMMARY | 2024-09-17 09:44 | XMS_ITS | Encounter Summary ---
Author Organization [facility] Address [address] [place] [address] Care Team Providers Care Outpatient Dietitian Name Role Phone Unavailable Primary Care Provider Unavailabl e Reason for Referral * Outpatient (Routine) - Closed Specialty Diagnoses / Procedures Referred By Contac t Referred To Contact Radiation Oncology Gypsy Zimmer APRN, C.N.P., D.N.P. [address] [place] [phone] Phone: tel: fax: Philip Encarnacion M.D. [address] [place] [phone] Phone: tel: fax: Referral ID Status Reason Start Date Expiration Date Visits Re quested Visits Authorized [id number] Closed 09/16/2024 03/18/2026 1 1 Encounter Details Date Type Department Care Team (Late st Contact Info) Description 09/16/2024 Clinical Communication Department of Radiation Oncology in [place], [place] [address] [place] [phone] Philip Encarnacion M.D. 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 - 09/16/2024 10:04 AM CDT Patient completed a one-week course of antibiotics around 09/10 for a possible infectious process found on recent CT and PET-CT imaging. Approximately 24-48 hours later he started to experience on/off fevers, along with increased feeling of being stuffed up and coughing up thick mucus. He denies hemoptysis. He also reports breathing is heavier and he is experiencing more chest tightness. He has experienced these symptoms of chest tightness and heavier breathing in the past when air quality is poor, as it has been for the last week or so. He continues utilizing inhalers and nebulizers and finding some relief with this. He has not actually taking his temperature at home to know what his fevers has been running. We discussed being seen by either his primary care provider or being seen in urgent care today for further evaluation and to evaluate his temperature and oxygen saturation. [facility] and see if he can be seen today. I did discuss if not, we could see him 1st thing tomorrow morning. We will continue to monitor. Addendum: patient can't get in with PCP until tomorrow and would rather be evaluated by Radiation. Will plan to get lab work today and physically assess tomorrow. * Telephone Encounter - Estefany Baugh - 09/16/2024 8:19 AM CDT Other Reason for Call Caller: Vidal Relationships to patient: Self Reason for call: Vidal called stating he has been running a fever on and off since night. He stated last night was the worst. He called asking what he should do. He is not having any other symptoms other than a cough. He asked that someone please give him a call at [phone] documented in this encounter Plan of Treatment Upcoming Encounters Date Type Department Care Team (Late st Contact Info) Description 10/17/2024 11:00 AM CDT Appointment Department of Radiation Oncology in [place], [place] [address] [place] [phone] Philip Encarnacion M.D. [address] [place] [phone] Scheduled Referrals Name Type Priority Associated Diagnoses Orde r Schedule Radiation Oncology office visit (clinic) Outpatient Referral Routine Expected: 09/17/2024, Expires: 12/17/2025 documented as of this encounter Results * Comprehensive Metabolic Panel [...] D.N.P. LAB BLOO D ADD-ON Final Result [facility] [address] [place] [address], [facility] [address] [place] [address] * (ABNORMAL) CBC with Differential, Blood (09/16/2024 [...] D.N.P. 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
--- NOTE | 2024-09-17 10:35 | CRLHL7_ITS ---
For Patients: As a result of the Century Cures Act, medical imaging exams and procedure reports are released immediately into your electronic medical record. You may view this report before your referring provider. If you have questions, please contact your health care provider. INDICATION: History lung cancer. Cough and fever. TECHNIQUE: CT chest without contrast. COMPARISON: 08/21/2024. FINDINGS: New moderate patchy peripheral ground-glass and consolidations within the upper lobes bilaterally. The irregular nodule within the posterior right upper lobe with linear extension to the pleura is redemonstrated measures approximally 2.2 centimeters, not definitively changed (series 3, image 20). Grossly stable 0.6 centimeter nodule within the left apex (9). Moderate emphysema is noted within the background. Borderline lower lobe bronchiectasis. No significant pleural effusion or pneumothorax. Prominent mediastinal lymph nodes are redemonstrated. No definite hilar lymphadenopathy. The heart is normal in size with coronary calcification. Motion within the aortic root. The aorta is not aneurysmal. No axillary lymphadenopathy. No chest wall mass. Images of the upper abdomen demonstrate cholecystectomy clips. Bone windows demonstrate no acute fracture. Indeterminate sclerosis within visualize cervical spine is likely degenerative. IMPRESSION: 1. New moderate patchy ground-glass and consolidations within the upper lobes compared to 08/21/2024, likely multifocal pneumonia. Recommend follow-up chest CT in 1 month to document improvement on antibiotics. Please note that all CT scans at this facility use dose modulation, iterative reconstruction, and/or weight-based dosing when appropriate to reduce radiation dose to as low as reasonably achievable. Dictated by Asher Rosario MD @ 09/17/2024 11:21:23 AM (Electronically Signed)
--- NOTE | 2024-09-17 10:35 | ED.GENADULT ---
HPI - General Adult General Chief complaint: Shortness of Breath/Dyspnea Stated complaint: difficulty breathing Time Seen by Provider: 09/17/24 10:23 History of Present Illness HPI narrative: This 64-year-old male comes in reporting cough and fever. He has a history of lung cancer and a scanned done 0 month or so ago did show a new 2.5 cm infiltrate in the right upper lobe that was thought to be infectious. He finished a course of Augmentin about a week ago but is continuing to have cough and does report fevers. He states that he has measured fevers around 100? F but does have associated chills and subsequent diaphoresis. He arrives here with normal vital signs. He states that he did also have a PET scan that did not show suspicion of new cancerous lesion. So it seems that his symptoms are more likely related to an infectious process. Related Data Home Medications ?Medication ?Instructions ?Recorded ?Confirmed magnesium citrate 125 mg capsule 250 mg PO QDAY 11/10/23 07/29/24 Previous Rx's ?Medication ?Instructions ?Recorded bupropion HCl 150 mg tablet,12 hr 150 mg PO BID #180 tabs 10/04/23 sustained-release tamsulosin 0.4 mg capsule 0.4 mg PO QPM #90 caps 10/04/23 tiotropium bromide 2.5 2 puff inhalation QDAY #4 grams 10/04/23 mcg/actuation mist for inhalation (Spiriva Respimat) fluticasone 500 mcg-salmeterol 50 1 inh inhalation BID #60 ea 11/10/23 mcg/dose blistr powdr for inhalation (Advair Diskus) sildenafil 100 mg tablet (Viagra) 100 mg PO QDAY PRN sexual activity 11/10/23 #7 tabs albuterol sulfate 2.5 mg/3 mL 2.5 mg (3 mL) inhalation Q4-6H PRN 03/25/24 (0.083 %) solution for nebulization shortness of breath or wheezing #120 mL compressor, for nebulizer #1 ea 03/25/24 ipratropium 0.5 mg-albuterol 3 mg 3 ml inhalation Q4-6H PRN COPD 03/25/24 (2.5 mg base)/3 mL nebulization #120 mL soln nebulizers (Altera Nebulizer #2 ea 03/25/24 Handset) albuterol sulfate 90 mcg/actuation 2 inh inhalation Q4H PRN shortness 05/20/24 aerosol inhaler of breath or wheezing #6.7 grams atorvastatin 20 mg tablet (Lipitor) 20 mg PO QHS #90 tabs 05/20/24 gabapentin 400 mg capsule 400 mg PO QHS #90 caps 05/20/24 levofloxacin 500 mg tablet 500 mg PO DAILY 10 days #10 tabs 09/17/24 Allergies Allergy/AdvReac Type Severity Reaction Status Date / Time varenicline Allergy Intermediate Mental Verified 07/29/24 14:43 problems codeine Allergy Unknown Verified 07/29/24 14:43 Review of Systems Status of ROS: Reports: 10 or more systems reviewed and unremarkable except as noted in History and below Narrative: Constitutional: No weight gain or loss. He reports fevers. Eyes: No discharge. No vision changes. HENT: No congestion, no sore throat, no ear pain. Cardiovascular: No chest pain, no palpitations. Respiratory: No shortness of breath, no wheezes. He reports a cough. Gastrointestinal: No abdominal pain, no vomiting, no diarrhea. Genitourinary: No dysuria, no hematuria. Musculoskeletal: Normal range of motion. Skin: No rashes, no pruritis. Neurological: No dizziness, weakness, sensory change, speech change. Endo/Heme/Allergies: No bruising or bleeding. No polydipsia. Pysch: no suicidality, no anxiety, no insomnia. All other systems reviewed and are negative. PFSH PFS Medical History Severe acute respiratory syndrome coronavirus 2 (SARS-CoV-2) vaccination declined (08/2020) ?Z28.21 - Immunization not carried out because of patient refusal (ICD-10) Anemia ?D64.9 - Anemia, unspecified (ICD-10) Positive colorectal cancer screening using Cologuard test ?R19.5 - Other fecal abnormalities (ICD-10) Nicotine dependence ?F17.200 - Nicotine dependence, unspecified, uncomplicated (ICD-10) Weakness ?R53.1 - Weakness (ICD-10) Recovering alcoholic ?F10.21 - Alcohol dependence, in remission (ICD-10) Surgical History History of inguinal hernia repair (2005) ?Z98.890 - Other specified postprocedural states (ICD-10) ?Z87.19 - Personal history of other diseases of the digestive system (ICD-10) History of cholecystectomy (2016) ?Z90.49 - Acquired absence of other specified parts of digestive tract (ICD-10) Family History Sister Breast cancer, Onset Age: 40 Brother Thyroid cancer Throat cancer Mother Lung cancer Liver cancer Daughter Cancer Father Liver cancer Alcoholism Heart disease Myocardial infarction Family/Other Alcoholism Brother Liver cancer Social History (Updated 10/03/23 @ 12:54 by Mojgan Gonzalez ~ [facility], [facility]) Narrative: Exercise involving walking- daily , 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 [employer], 5 kids Recovering alcoholic- sober since 1991 Tobacco abuse- 3-4/day, over 45 pack years What is your current living situation?: I presently have a place to live Problems where you live: no known problems In the past 12 months, utilities in danger of being shut off: no In past 12 months, lack of transportation kept you from medical appts, meetings, work, or getting things needed for daily living: no In the past 12 mos, have been you worried that your food would run out before you had money to buy more?: never true In the past 12 mos, the food you bought just didn't last and you didn't have money to buy more?: never true Smoking Status: Light tobacco smoker Do you use any of these nicotine containing products: None Second hand tobacco smoke exposure: No How often do you have a drink containing alcohol: never How often do you have six or more drinks on one occasion: Never AUDIT-C Alcohol total score: 0 Non-prescribed substance use: marijuana (any form) Non-prescribed substance use details: smokes marijuana at night. How often does anyone, including family, friends and others, physically hurt you: never How often does anyone, including family, friends and others, insult or talk down to you: never How often does anyone, including family, friends and others, threaten you with harm: never How often does anyone, including family, friends and others, scream or curse at you: never service: No Exam Narrative: Exam Narrative: Constitutional: Well-developed, well-nourished, no acute distress. HEENT: Normocephalic, atraumatic. Neck: Normal range of motion. Nontender. Supple. Heart: Regular. No murmurs. Normal rate. Intact distal pulses. Lungs: Clear to auscultation. No chest discomfort. No wheezes, rhonchi, or rales. Abdomen: Normal bowel sounds. Nontender. No rebound tenderness. Genitalia: Deferred. Back: No midline tenderness. Normal range of motion. Extremities: Normal range of motion. No injury. Skin: Intact. No rash. Warm. No erythema or pallor. Neurologic: No altered sensation. No weakness. Alert and oriented. Psychiatric: No suicidality. No anxiety or depression. No insomnia. Nursing notes and vitals signs are reviewed. Const: Vital Signs, click to edit/add: Vital Signs - 24 hr 09/17/24 09:42 09/17/24 09:58 09/17/24 10:00 Temperature 99.8 F H Pulse Rate 99 Pulse Rate [Pulse Oximeter] 98 Respiratory Rate 20 17 23 Blood Pressure 124/85 Blood Pressure [Ri ght Upper Arm] 116/80 Pulse Oximetry 97 95 Oxygen Delivery Me thod Room Air 09/17/24 10:01 09/17/24 10:02 09/17/24 10:03 Temperature Pulse Rate 89 94 91 Pulse Rate [Pulse Oximeter] Respiratory Rate 19 26 H 20 Blood Pressure 129/79 Blood Pressure [Ri ght Upper Arm] Pulse Oximetry 95 94 94 Oxygen Delivery Me thod 09/17/24 10:15 09/17/24 10:17 09/17/24 10:30 Temperature Pulse Rate 92 90 100 Pulse Rate [Pulse Oximeter] Respiratory Rate 22 18 18 Blood Pressure 136/78 Blood Pressure [Ri ght Upper Arm] Pulse Oximetry 93 95 93 Oxygen Delivery Me thod Course Vital Signs Vital signs: Initial Vital Signs Temperature 99.8 F H 09/17/24 09:42 Temperature Source Temporal Artery Scan 09/17/24 09:42 Pulse Rate 98 09/17/24 09:42 Respiratory Rate 20 09/17/24 09:42 Blood Pressure 116/80 09/17/24 09:42 Blood Pressure Mean 92 09/17/24 09:42 Blood Pressure Position Sitting 09/17/24 09:42 Pulse Oximetry 97 09/17/24 09:42 Oxygen Delivery Method Room Air 09/17/24 09:42 Vital Signs Temperature 99.8 F H 09/17/24 09:42 Pulse Rate 98 09/17/24 09:42 Respiratory Rate 20 09/17/24 09:42 Blood Pressure 116/80 09/17/24 09:42 Pulse Oximetry 97 09/17/24 09:42 Oxygen Delivery Method Room Air 09/17/24 09:42 Temperature 99.8 F H 09/17/24 09:42 Pulse Rate 100 09/17/24 10:30 Respiratory Rate 18 09/17/24 10:30 Blood Pressure 136/78 09/17/24 10:17 Pulse Oximetry 93 09/17/24 10:30 Oxygen Delivery Method Room Air 09/17/24 09:42 Medical Decision Making MDM Narrative Medical decision making narrative: This patient comes in reporting cough and fevers that have continued despite finishing a course of Augmentin. He was sent here from clinic and arrives with normal vital signs. I did obtain a CT scan of his chest which does show bilateral infiltrate suspicious for pneumonia in the upper lobes. He does have a history of lung cancer but there are no findings that suggest that this problem is worsening. The patient does report fevers and diaphoresis. Apparently the pathogen is not responding to Augmentin so I did consult with the [place] guide for treatment options and prescribed Levaquin for him. It is recommended to have a follow-up CT scan in a month or so. The patient states that he does have an appointment for this to occur about a month from now. Imaging Data CT scan - chest: Radiologist's impression: New moderate patchy ground-glass and consolidations within the upper lobes compared to 08/21/2024, likely multifocal pneumonia. Recommend follow-up chest CT in 1 month to document improvement on antibiotics. ECG Data Attestation: I personally reviewed and interpreted this ECG as follows: Interpretation: Normal sinus rhythm. Rate is 102 beats per minute. There are no ST or T-wave abnormalities. Discharge Plan Discharge Clinical Impression: Pneumonia Patient Disposition: Home, Self-Care Condition: Stable Additional Instructions: Take medication as prescribed. Follow up with MD as scheduled for recheck. Return if worsening symptoms occur. Prescriptions: New levofloxacin 500 mg tablet 500 mg PO DAILY 10 Days Qty: 10 0RF No Action magnesium citrate 125 mg capsule 250 mg PO QDAY fluticasone propion-salmeterol [Advair Diskus] 500-50 mcg/dose blister with device 1 inh inhalation BID Qty: 60 11RF sildenafil [Viagra] 100 mg tablet 100 mg PO QDAY PRN (Reason: sexual activity) Qty: 7 6RF Rx Instructions: administer 30 minutes to 4 hours before activity bupropion HCl 150 mg tablet sustained-release 12 hr 150 mg PO BID Qty: 180 3RF tamsulosin 0.4 mg capsule 0.4 mg PO QPM Qty: 90 3RF Spiriva Respimat 2.5 mcg/actuation mist 2 puff inhalation QDAY Qty: 4 12RF ipratropium-albuterol 0.5 mg-3 mg(2.5 mg base)/3 mL solution for nebulization 3 ml inhalation Q4-6H PRN (Reason: COPD) Qty: 120 6RF albuterol sulfate 2.5 mg /3 mL (0.083 %) solution for nebulization 2.5 mg inhalation Q4-6H PRN (Reason: shortness of breath or wheezing) Qty: 120 6RF (DME) compressor, for nebulizer Device See Rx Instructions .Route Qty: 1 0RF Rx Instructions: As directed (DME) nebulizers [Altera Nebulizer Handset] [facility] See Rx Instructions .Route Qty: 2 3RF Rx Instructions: As directed albuterol sulfate 90 mcg/actuation HFA aerosol inhaler 2 inh inhalation Q4H PRN (Reason: shortness of breath or wheezing) Qty: 6.7 12RF gabapentin 400 mg capsule 400 mg PO QHS Qty: 90 1RF atorvastatin [Lipitor] 20 mg tablet 20 mg PO QHS Qty: 90 3RF Follow Up/Referrals: Ashley Morales APRN, [facility] [Primary Care Provider, Family Practice] Stand Alone Forms: MyHealth Info Instructions
== END 2024-09-17 11:53 | disposition home or self-care (01) ==
PROVIDERS: Emergency Provider Emergency Medicine Emergency Medical Services; PCP Nurse Practitioner Family
DX: J18.9 Pneumonia, unspecified organism (principal); R06.02 Shortness of breath; F17.210 Nicotine dependence, cigarettes, uncomplicated
CPT/HCPCS: 71250; 93005; 99284

== ENCOUNTER 2024-10-14 13:39 | Outpatient (CLI) | payer MEDICAID, SELFPAY ==
--- NOTE | 2024-10-14 14:00 | CRLHL7_ITS ---
For Patients: As a result of the Century Cures Act, medical imaging exams and procedure reports are released immediately into your electronic medical record. You may view this report before your referring provider. If you have questions, please contact your health care provider. Indication: PULMONARY NODULE. NSCLC Technique: CT Chest W/ 75CC [id number] intravenous contrast Please note that all CT scans at this facility use dose modulation, iterative reconstruction, and/or weight-based dosing when appropriate to reduce radiation dose to as low as reasonably achievable. Comparison: 09/17/2024 Findings: Similar 2.2 cm nodular opacity within the right upper lobe, . Also similar 6 millimeter nodule within the left lung apex, 04/29. Residual opacity within the periphery of the right upper lobe at the lateral aspect which measures 1.9 cm, . Chronic subpleural density posterior left lung apex. Decreased reticular densities in both lung apices compared to the prior study. Residual subpleural density within the right lateral lung measures 1.4 cm. Stable small pulmonary nodules within the right middle lobe. No pleural effusion or pneumothorax. No enlarged lymph nodes. Stable nodular densities within the lingula. There is no fracture. No intrinsic osseous lesion. Atherosclerotic changes. Status post cholecystectomy. COPD/emphysema. Impression: Improved aeration within both lung apices with decreased reticulonodular densities bilaterally. Persistent nodular density in the right upper lobe measures 2.2 cm and similar 6 millimeter nodule in the left upper lobe. Smaller nodules are also unchanged elsewhere bilaterally. Residual subpleural densities in both upper lobes. No adenopathy. Please note that all CT scans at this facility use dose modulation, iterative reconstruction, and/or weight-based dosing when appropriate to reduce radiation dose to as low as reasonably achievable. Dictated by Mio Barajas MD @ 10/14/2024 3:00:39 PM (Electronically Signed)
[2024-10-14 14:11] LABS: Creatinine* 0.9 mg/dL (0.5-1.5); Estimated Glomerular Filt Rate 95 ml/min
== END 2024-10-14 13:40 | disposition home or self-care (01) ==
LOC: CT 13:40
PROVIDERS: PCP Nurse Practitioner Family; Visit Provider Internal Medicine
DX: R91.1 Solitary pulmonary nodule (principal); R91.8 Other nonspecific abnormal finding of lung field
CPT/HCPCS: 36415; 71260; 82565; Q9967

== ENCOUNTER 2024-11-01 13:21 | Outpatient (CLI) | payer MEDICAID, SELFPAY | END 2024-11-01 13:22 | disposition home or self-care (01) | PROVIDERS: PCP Nurse Practitioner Family; Visit Provider Nurse Practitioner Family | DX: Z01.818 Encounter for other preprocedural examination (principal); Z12.5 Encounter for screening for malignant neoplasm of prostate; Z13.0 Encounter for screening for diseases of the blood and blood-forming organs and certain disorders involving the immune mechanism; E78.5 Hyperlipidemia, unspecified | CPT/HCPCS: 80053; 80061; 85025; G0103 ==

== ENCOUNTER 2024-12-16 13:47 | Outpatient (CLI) | payer MEDICAID, SELFPAY ==
--- NOTE | 2024-12-16 14:00 | CRLHL7_ITS ---
For Patients: As a result of the Century Cures Act, medical imaging exams and procedure reports are released immediately into your electronic medical record. You may view this report before your referring provider. If you have questions, please contact your health care provider. Indication: MALIGNANT NEOPLASM LUNG Technique: Noncontrast CT chest Please note that all CT scans at this facility use dose modulation, iterative reconstruction, and/or weight-based dosing when appropriate to reduce radiation dose to as low as reasonably achievable. Comparison: 10/14/2024 Findings: There is a new irregular density within the left upper lobe which measures 1.5 cm, . Similar smaller densities within the left upper lobe. Scarring at the left lung apex. Decreased nodular densities in the right upper lobe laterally with underlying curvilinear densities when compared to the prior study, 05/02 and . Lobular mass within the right upper lobe is possibly similar. Additional smaller nodular densities in the right lung are unchanged. Underlying COPD/emphysema. Similar intrathoracic lymph nodes. No fracture. Impression: New suspicious mass within the left upper lobe measures 1.5 cm. Similar mass in the right upper lobe. Decreased size/conspicuity of nodular densities in the periphery of the right upper lobe with small residual nodules and underlying curvilinear densities. Smaller nodules are similar bilaterally. Chronic left apical pleural-parenchymal scarring with also some decreased solid component. Please note that all CT scans at this facility use dose modulation, iterative reconstruction, and/or weight-based dosing when appropriate to reduce radiation dose to as low as reasonably achievable. Dictated by Mio Barajas MD @ 12/16/2024 2:50:34 PM (Electronically Signed)
== END 2024-12-16 13:48 | disposition home or self-care (01) ==
LOC: CT 13:48
PROVIDERS: PCP Nurse Practitioner Family; Visit Provider Nurse Practitioner
DX: C34.92 Malignant neoplasm of unspecified part of left bronchus or lung (principal)
CPT/HCPCS: 71250